=== PATIENT | male | born 1965 | race Caucasian/White ===

== ENCOUNTER 2018-07-24 21:29 | Emergency (ER) | payer OTHER ==
[~2018-07-24] VITALS: Ht 185.4 cm; Wt 145.2 kg
[2018-07-24] MEDS ORDERED: ASPIRIN81 MG PO (21:49)
[2018-07-24] MEDS ORDERED: PENICILLIN V P500 MG PO (22:39)
== END 2018-07-24 22:50 | disposition home or self-care (01) ==
LOC: ED 21:29
DX: K08.89 Other specified disorders of teeth and supporting structures (principal); G89.29 Other chronic pain; F17.200 Nicotine dependence, unspecified, uncomplicated; Z79.82 Long term (current) use of aspirin
CPT/HCPCS: 99282

== ENCOUNTER 2020-01-15 11:15 | Inpatient (IN) | payer OTHER ==
[~2020-01-15] VITALS: Ht 185.4 cm; Wt 176.0 kg
[~2020-01-15 11:15] MED LIST: ASPIRIN81 MG PO; PENICILLIN V P500 MG PO
--- NOTE | 2020-01-15 18:53 | NUR ---
PT TO [facility] VIA GURNEY STANDS TO TRANSFER TO THE BED. PT IS UPBEAT AND COOPERATIVE ASKS APPROPRIATE QUESTIONS. DENIES PAIN OR NAUSEA. ORIENTED TO ROOM AND CALL SYSTEM, PT AGREES TO CALL FOR NEEDS AND TO GET OUT OF BED. EDUCATIONAL MATERIAL ON DIVERTIC PROVIDED WELL LONG DISCUSSION ON THE MATTER
--- NOTE | 2020-01-15 19:30 | NUR ---
pt RESTING IN BED AWAKE. IVF BOLUS INFUSING WNL ORDERED. pt RATES PAIN AT 1-2/10 IN ABDOMEN. "FINE RIGHT NOW". CALL LIGHT IN REACH.
--- NOTE | 2020-01-15 21:40 | NUR ---
PT IV SOUNDING. REQUESTED AND RECEIVED KLEENEX BOX. AWARE THAT PRIMARY RN WILL ADDRESS THE IV THAT CONTINUES TO ALARM, (IV IN LAC).
--- NOTE | 2020-01-15 22:30 | NUR ---
pt AWAKE, ASSESSMENT COMPLETE. pt RATES PAIN 4/10 IN TESTICALS, PRN TORADOL AND SCHEDULED TYLENOL ADMINISTERED. pt REQUESTING "THE GOOD STUFF, MORPHINE". EDUCATION PROVIDED, INSTRUCTED TO CALL IF PAIN NOT CONTROLLED. VSS. URINALS IN REACH. IV ANTIBIOTIC INFUSING WNL ORDERED. NEW PIV LEFT HAND. CALL LIGHT IN REACH.
--- NOTE | 2020-01-15 23:37 | NUR ---
CALL LIGHT ANSWERED. URINAL EMPTIED. IV REINFORCED W TAPE, pt DIAPHORETIC, IV ANTIBIOTIC INFUSING WNL. FAN PLACED IN ROOM, TEMPERATURE ADJUSTED. CPAP ON. CALL LIGHT IN REACH.
--- NOTE | 2020-01-16 03:03 | NUR ---
IN pt ROOM FOR VS, VSS. pt SLEEPING WITH CPAP ON. RT KYLIE VARGAS ALSO IN ROOM. URINAL EMPTIED. ASSESSMENT COMPLETE. IVF INFUSING WNL ORDERED. CALL LIGHT IS IN REACH. DROPLET PRECAUTIONS UTILIZED BY STAFF DUE TO CPAP USE BY pt.
--- NOTE | 2020-01-16 07:41 | NUR ---
RECEIVED REPORT FROM KOBE ANGUIANO. PTS DOOR CLOSED AT THIS TIME A PRECUATION THAT COVID TEST IS NOT BACK YET.
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
--- NOTE | 2020-01-16 09:19 | NUR ---
MED REC COMPLETE
--- NOTE | 2020-01-16 10:32 | NUR ---
PATIENT IN CHAIR WATCHING TV. PATIENT DID SHOWER AND AM, ORAL CARE IND. FRESH WATER GIVEN. CALL LIGHT IN REACH. NO FURTHER NEEDS AT THIS TIME.
--- NOTE | 2020-01-16 12:18 | NUR ---
PT TALKED WITH THE PHYSCIAL THERAPIST THAT HE HAD A BANDAGE ON HIS ELEBOW THAT HAD BEEN ON FOR A WEEK. THIS RN REMOVED THE DRESSING THAT INCLUDED 4X4 GAUZE, ROLL GAUZE AND COBAN. ON THE GAUZE THIS RN NOTED SMALL AMOUNT OF CALVILLO/YELLOW FLUID. THIS RN CLEANED THE SITE ON PTS LEFT ELEBOW AND SKIN INTACT WITH SMALL SKIN TEAR NOTED WITH PINK IN THE BED OF THE TEAR AND PINK EDGES. THIS RN PLACED AN ALLEVEN DRESSING ON THE SITE AT THIS TIME.
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
--- NOTE | 2020-01-16 13:36 | NUR ---
PATIENT IN CHAIR READING. NO VOID AT THIS TIME, PATIENT SAID PROBABLY WITHIN THE NEXT HOUR HE WILL HAVE TO, WILL CHECK BACK IN. CALL LIGHT IN REACH. NO FURTHER NEEDS AT THIS TIME.
--- NOTE | 2020-01-16 13:59 | NUR ---
IN PTS ROOM TO GIVE PT AFTERNOON MEDS. PT STATES THAT HE IS IN PAIN 8. EDUCATED PT THAT TO GET MORE THAN TYLENOL FOR PAIN CONTROL HE NEEDS TO LET HIS NURSING STAFF KNOW. DISCUSSED WITH PT THAT WE WILL START WITH 30 MG OF TORADOL AND THEN IF THAT IS NOT TAKING CARE OF HIS PAIN THEN WE CAN GO TO SOMEHTING STRONGER. IN PTS ROOM ALSO AT THIS TIME. PT WANTING HIS CHEW FROM HIS TRUCK. DISCUSSED WITH PT THAT THIS IS NOT APPROPRIATE FOR HOSPITAL USE. PTS SCDS IN PLACE. DISCUSSED WITH PT THAT GETTING UP TO THE CHAIR MIGHT MAKE HIM MORE COMFORTABLE, PT STATED THAT HE HAS BEEN UP
--- NOTE | 2020-01-16 14:12 | NUR ---
PATIENT IN BED WATCHING TV. FRESH WATER GIVEN. NO VOID, RN NOTIFIED. CALL LIGHT IN REACH. NO FURTHER NEEDS AT THIS TIME.
--- NOTE | 2020-01-16 18:10 | NUR ---
In to see pt as he pushed his call light. Pt requesting to speak with Darling, his primary RN for pain medications. This RN told pt that I would deliver the message to Darling. No immediate needs at this time. Darling notified of patient's request for medication.
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
--- NOTE | 2020-01-16 18:22 | NUR ---
PATIENT RESTING IN BED. VITAL SIGNS AND I&O DONE. PATIENT DID NOT VOID DURING THIS PERIOD. RN NOTIFIED. CALL LIGHT WITHIN REACH. NO OTHER NEEDS AT THIS TIME
--- NOTE | 2020-01-16 18:45 | NUR ---
IN PTS ROOM TO SL PTS IV SO HE CAN TAKE A SHOWER. PT PUT HIS ARM IN FRONT OF THIS RN AND STATED "TAKE OUT THIS IV" PT HAS 2 IV SITES ON HIS LEFT ARM. DISCUSSED WITH PT THAT IF THIS RN REMOVES THIS IV AND THE OTHER GOES BAD THEN HE WILL HAVE TO BE POKED AGAIN. PT UNDERSTANDING. DISCUSSED WITH THAT HE SHOULD ASK MORE RESPECTFULLY. PT STATED "WELL I WOULDN'T WANT TO BE DISRESPECTFUL" THIS RN PROVIDED PT WITH 2 30ML CONDITIONERS FOR HIM TO SHOWER WITH, 1 30ML CUP OF CONDITIONER WAS NOT ENOUGH
--- NOTE | 2020-01-16 19:34 | NUR ---
RECEIVED REPORT FROM SILVIO WERNER. pt SITTING IN CHAIR. REPORTED "I JUST TOOK A SHOWER, I WANT A FEW MINUTES TO DRY OFF BEFORE YOU HOOK ME BACK UP" NO FURTHER REQUESTS. CALL LIGHT WITHIN REACH. WHITEBOARD UPDATED.
--- NOTE | 2020-01-16 20:00 | NUR ---
ROUNDED ON pt. RIRI ANGUIANO IN ROOM. pt SPEAKING IN A LOUD, AGGRESSIVE TONE.
--- NOTE | 2020-01-16 21:30 | NUR ---
SPENT HOUR OR SO WITH PT. HE WAS VERY VOCAL ABOUT HIS CARE THROUGH THE DAY, AT ONE POINT HE WAS AGGRESSIVE, VERBALLY, NOT DIRECTED TOWARD THIS NURSE. AT ONE POINT THIS NURSE OFFERED HIM TO LEAVE AMA, AND HE SAID THAT'S WHAT YOU WANT ME TO DO, NO ONE WANTS TO PROVIDE CARE. SAT AND ALLOWED HIM TO VENT, UNSURE IF HIS CONCERNS ARE TRUTHFUL OR NOT, FELT THAT HE NEEDED TO VENT. HE WAS CONCERNED WITH PATRONIZING ATTITUDES. HE SHOOK MY HAND, AND THANKED ME FOR TALKING WITH HIM. OFFERED AND HE ACCEPTED A BOTTLE OF APPLEJUICE.
--- NOTE | 2020-01-16 21:30 | NUR ---
ROUNDED ON pt. RIRI RN REMAINS IN ROOM. pt SPEAKING IN A MORE CALM MANNER.
--- NOTE | 2020-01-16 23:30 | NUR ---
IN TO DO ASSESSMENT. pt RESTING IN BED. DISCUSSED PAIN MANAGEMENT, RATED PAIN 4/10. REQUESTED 4MG OF MORPHINE ALONG WITH OTHER PAIN MEDICATIONS. MEDICATIONS GIVEN (SEE MAR). pt TALKED DURING THE ENTIRE ASSESSMENT AND MED PASS. AT TIMES COUGHING. IV ABX INFUSING (SEE MAR). RT IN TO SETUP CPAP. CPAP IN PLACE. NO FURTHER REQUESTS AT THIS TIME. CALL LIGHT WITHIN REACH.
--- NOTE | 2020-01-17 00:22 | NUR ---
CPAP ALARMING. pt UP TO TURN ON FAN. NO REQUESTS AT THIS TIME. CALL LIGHT WITHIN REACH. CPAP IN PLACE.
--- NOTE | 2020-01-17 02:15 | NUR ---
IV PUMP BEEPING. REDRESSED IV, ALARM RESOLVED. pt RESTING IN BED WITH CPAP ON. RATED PAIN "OKAY" NO REQUESTS AT THIS TIME. CALL LIGHT WITHIN REACH.
--- NOTE | 2020-01-17 04:00 | NUR ---
ROUNDED ON pt. RESTING WITH CPAP ON. CALL LIGHT WITHIN REACH.
--- NOTE | 2020-01-17 06:32 | NUR ---
ASSESSMENT DONE. pt REPORTED HIS PAIN WAS "FINE" 08/28. MEDICATIONS GIVEN (SEE MAR). VITALS AND I&O RECORDED. WATER PROVIDED. NO FURTHER REQUESTS AT THIS TIME. CALL LIGHT WITHIN REACH.
--- NOTE | 2020-01-17 07:58 | NUR ---
PT AWAKE, UP AND ABOUT IN THE ROOM, EATTING BKFS
--- NOTE | 2020-01-17 08:00 | NUR ---
THIS AM CBG WAS NOT COMPLETED THIS AM DUE TO PT UPSET WITH HOSPITAL ROUTINE.
--- NOTE | 2020-01-17 09:30 | NUR ---
PATIENT UP ON COUCH. SILVIO CASTILLO IN ROOM, LINENS CHANGED. PATIENT PREPPING FOR SHOWER. VITALS AND I&OS DONE AND CHARTED. CALLIGHT IN REACH
--- NOTE | 2020-01-17 10:54 | NUR ---
PT UPSET AGAIN THIS AM, TALKED WITH PT TO FIND OUT WHAT WAS IN HIS TRUCK THAT HE NEEDED. AFTER SOMETIME WE WHERE ABLE TO COME UP WITH A PLAN. HE WANTS TO SHOWER. THAT WAS SET UP FOR HIM, HIS DIET CHANGED SO BKF ORDERED. AND FRESH LINES ON THE BED THIS AM.
--- NOTE | 2020-01-17 12:14 | NUR ---
PT CONTIOUES TO BE IN THE SHOWER AT THIS TIME. PT VERBAL COMMUNICATIONS AND TONE IS BETTER THIS TIME.
--- NOTE | 2020-01-17 12:41 | NUR ---
PT DENIES PAIN AFTER EATTING A LOW FIBER DIET. CURRENTLY SITTING IN CHAIR AND EATING LUNCH.
--- NOTE | 2020-01-17 14:15 | NUR ---
PT SITTING UP IN BED, TV ON. PT SAID HE IS SOMEWHAT BETTER TODAY. PT NEEDED TO TALK-SHARED AT LENGTH HIS FAMILY HISTORY. NEEDS VALIDATION THAT SOMEONE WANTS HIM, AND HAS NO HIDDEN AGENDAS. SHARED GERIATRIC PHYSICIAN WITH PT, AND PRAYED WITH HIM.
--- NOTE | 2020-01-17 14:16 | NUR ---
PATIENT UP IN CHAIR. VITALS AND I&OS CHARTED. MANUAL BP BY ANNA. CALL LIGHT IN REACH
--- NOTE | 2020-01-17 15:16 | NUR ---
PT IS MORE INTERACTIVE WITH STAFF THIS AFTERNOON. TALKING ABOUT PEOPLE WE KNOW IN [facility]. PT IN BED WATCHING TV AT THIS TI9ME.
--- NOTE | 2020-01-17 17:39 | NUR ---
PATIENT UP IN BED. VITALS AND I&OS CHARTED. CALL LIGHT IN REACH. NO OTHER NEEDS AT THIS TIME
--- NOTE | 2020-01-17 17:51 | NUR ---
PT IN BED HAS BEEN VERY COOPERATIVE AT THIS TIME, HE IS VERY OPEN ABOUT HIS FAMILY AND THE DISFUNCTION HE HAS WITH THEM. HE IS TOLERATING PO MEDICATIONS AND WAS GIVEN EDUCATION OF S/S OF WHAT TO LOOK FOR IF HE IS HAVING PROBLEMS WITH IT.
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
--- NOTE | 2020-01-17 19:20 | NUR ---
SHIFT REPORT RECEIVED FROM ANNA ANGUIANO. PT UP IN CHAIR, WATCHING TV. NO NEEDS AT THIS TIME. CALL LIGHT IN REACH.
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
--- NOTE | 2020-01-17 22:14 | NUR ---
PAIN 2/10, SCHEDULED MED PROVIDED. JUICE PROVIDED. NO OTHER NEEDS AT THIS TIME. CALL LIGHT IN REACH.
--- NOTE | 2020-01-18 00:44 | NUR ---
PT RESTING IN BED, EYES CLOSED. RR RATE EVEN, UNLABORED. CALL LIGHT IN REACH.
--- NOTE | 2020-01-18 01:30 | NUR ---
PT RESTING IN BED, EYES CLOSED. RR EVEN, CPAP ON. CALL LIGHT IN REACH.
--- NOTE | 2020-01-18 03:24 | NUR ---
PT CALLS CPAP IS ALARMING. ALARM FIXED. ASSESSMENT COMPLETED. LUNGS CLEAR BUT DIMINISHED. HEART SOUNDS DISTANT. 1+ BLE EDEMA. CHRONIC NUMBNESS IN FEET. NO OTHER NEEDS. CALL LIGHT IN REACH.
--- NOTE | 2020-01-18 05:25 | NUR ---
PT STATES HE HAS 6/10 PAIN IN ABD, HIPS AND TESTICLES. IV WNL, CDI, FLUSHED WELL. SCHEDULED MED PROVIDED. PT STATES THE BED IS VERY PAINFUL AND THE CPAP DOES NOT GIVE ENOUGH AIR. RN NOTIFY RT. VS AND I&O COMPLETED. JUICE PROVIDED. NO OTHER NEEDS AT THIS TIME. CALL LIGHT IN REACH.
--- NOTE | 2020-01-18 05:52 | NUR ---
PT SLEPT OFF AND ON TONIGHT. PT STATES BED IS PAINFUL AND HOT TO SLEEP IN. PAIN MANAGED WITH SCHEDULED AND PRN MEDS. VSS, UOS. LUNGS CLEAR BUT DIMINISHED. BOWEL TONES ACTIVE. PT DECLINES SCDs. PT TOLERATED DIET AND FLUIDS WELL.
--- NOTE | 2020-01-18 07:37 | NUR ---
MORNING ASSESSMENT DONE. PATIENT IS COMFORTABLE, UP TO CHAIR AND AWAITING BREAKFAST. BLOOD GLUCOSE IS 177 THIS MORNING. PATIENT HAS MULTIPLE COMPLAINTS ABOUT HOSPITAL BED/CPAP. SEEMS TO BE IN A GOOD MOOD OTHERWISE.
--- NOTE | 2020-01-18 08:44 | NUR ---
PATIENT UP TO AMBULATE IN HALLWAYS, WEARING MASK.
--- NOTE | 2020-01-18 10:34 | NUR ---
PATIENT SLEEPING ON COUCH WITH REGULAR RESPIRATIONS.
[2020-01-18] MEDS ORDERED: ASPIRIN EC81 MG PO (12:02)
[2020-01-18] MEDS ORDERED: METRONIDAZOLE250 MG PO (12:02)
[2020-01-18] MEDS ORDERED: NICOTINE PATCH1 EAC1 TD (12:02)
[2020-01-18] MEDS ORDERED: CIPROFLOXACIN250 MG PO (12:02)
--- NOTE | 2020-01-18 12:02 | NUR ---
DR. HERNADEZ IN ROOM TO DISCUSS DISCHARGE WITH PATIENT.
[2020-01-18] MEDS ORDERED: TYLENOL EXTRA500 MG PO (12:03)
[2020-01-18] MEDS ORDERED: FAMOTIDINE20 MG PO (12:03)
[2020-01-18] MEDS ORDERED: PERCOCET 7.5-31 EACH PO (12:04)
--- NOTE | 2020-01-18 12:45 | NUR ---
PT UP AMBULATING IN GOULD, HAD BRIEF VISIT, GAVE ENCOURAGEMENT. PT SEEMED TO ENJOY BEING UP AND WALKING.
--- NOTE | 2020-01-18 13:33 | NUR ---
PATIENT UP TO SHOWER, THEN TO D/C HOME.
--- NOTE | 2020-01-18 14:11 | NUR ---
PATIENT AMBULATED TO FRONT DOOR WITH STAFF.
--- NOTE | 2020-01-19 11:23 | HP ---
[facility] [address], [place] [address] Signed ADMISSION DATE: 01/15/2020 REASON FOR ADMISSION: Acute sigmoid diverticulitis with small amount of extraluminal air. HISTORY OF PRESENT ILLNESS: This 54-year-old morbidly obese white man, presented to the emergency room at approximately 11:50 this morning (it is now 5:50 p.m.). His main complaint was right-sided groin and testicular pain, which has been going on for at least 6 months, he tells me. The patient did not have much in the way of complaints of abdominal pain. His evaluation in addition to physical examination showed some tenderness in the right groin crease area. He was found to have an elevated white count of 14,000. Normal electrolytes and liver enzymes. An ultrasound of the scrotum and its contents performed at approximately 1 p.m. showing a small left hydrocele containing debris and normal appearance of the testes and epididymis. A CT scan was subsequently performed at 1:30 p.m., which showed significant diverticulitis with small amount of extraluminal air (small bubbles mixed in with inflammatory change of the sigmoid mesentery). I was called at approximately 3 p.m. with this and recommended direct admit to the hospital to my service. The patient has yet to be transferred to the [facility]. He was to be started on meropenem. I confirmed with the patient that his main complaint over the past several months has been bilateral testicular pain. He has never had a sexually transmitted disease that he admits to. He thinks that his testicles shrunk in size from 6 months ago. He also has noted episodic left-sided abdominal pain, mostly in the upper abdomen. PAST MEDICAL HISTORY: The patient has significant past medical history including morbid obesity and metabolic syndrome essentially. He has undergone coronary stenting of what sounds like left anterior descending artery in [place] approximately 2 years ago and takes aspirin 81 mg a day for this. The patient has a high level of disgruntlement regarding his care at [facility] in [place]. He is on [facility] Plan and feels he has not had access to the care that he desires in that institution, that is the reason he left from his home in [place] to come to [place] at this time. SOCIAL HISTORY: Electronically Signed By: KEN HERNADEZ MD 01/19/20 1123 PATIENT NAME: MYA RANGEL HISTORY AND PHYSICAL DATE OF : 69 REPORT #: [id number] PHYSICIAN: KEN HERNADEZ MD PCP: NO PRIMARY CARE PHYSICIAN REPORT IS CONFIDENTIAL AND NOT TO BE RELEASED WITHOUT AUTHORIZATION [facility] [address] [place] [id number] Signed The patient does smoke on a daily basis and uses marijuana. He does not work. He has parents in the [place] area, with which he sometimes visits. ALLERGIES: He has no known drug allergies. MEDICATIONS: He is taking aspirin 81 mg a day. REVIEW OF SYSTEMS: He denies any nausea or vomiting. Denies any precordial chest pain or shortness of breath. He has had no lower extremity pain. He has had bilateral testicular pain for months, worsening acutely today. He denies abdominal pain other than the groin on the right and left side. PHYSICAL EXAMINATION: VITAL SIGNS: Very markedly obese white man, whose BMI is 42.2, 6 feet 1 inch tall, and 145 kg. Temperature is 99.7, pulse 81, blood pressure 165/71, respirations 18. HEENT: Mucous membranes are reasonably moist. He has some dental problems. NECK: Trachea is midline. CHEST: Shows normal respiratory excursion. He has no tachypnea or obvious difficulty breathing. Pulses regular. ABDOMEN: Massively obese. Palpation shows a tense abdomen, but no focal tenderness and no mass. GENITALIA: Shows uncircumcised male. Both testicles are of normal size and not acutely tender. I see no evidence of hydrocele despite the ultrasound finding. EXTREMITIES: Show no clubbing, cyanosis, or edema. They are obese. There is no other abnormality. LABORATORY STUDIES: Show a white count of 14.0, hematocrit of 49.1, platelets 193,000. Chem profile is essentially normal. Sodium is 130, glucose 182. Liver enzymes are normal. His urinalysis is essentially normal. Serology testing including COVID shows that study to be pending. Abdomen and pelvic CT that has been performed shows intense inflammation and fat around the sigmoid colon with sigmoid bowel wall thickening and diverticula and several small foci of extraluminal gas with inflammation. Inflammatory changes are in the retroperitoneum extending to the duodenum and as well as the base of the bladder. There is no sign of massive free air. I have reviewed the films myself. The bladder is unremarkable as are the testicles essentially. ASSESSMENT: The patient has acute diverticulitis. Whether this is manifesting as additional Electronically Signed By: KEN HERNADEZ MD 01/19/20 1123 PATIENT NAME: MYA RANGEL HISTORY AND PHYSICAL DATE OF : 69 REPORT #: [id number] PHYSICIAN: KEN HERNADEZ MD PCP: NO PRIMARY CARE PHYSICIAN REPORT IS CONFIDENTIAL AND NOT TO BE RELEASED WITHOUT AUTHORIZATION [facility] [address] [place], [place] [address] Signed testicular pain is uncertain, though not impossible. He does not have massive free air to suggest a large disruption of the colon or other intraabdominal hollow viscus. The rather intense inflammatory change of the sigmoid mesentery consistent with acute diverticulitis with probably small perforation... only small air bubbles are seen in the fatty mesentery of the sigmoid. I have recommended admission to the hospital with meropenem antibiotic (broad-spectrum), bowel rest largely though will allow some clear liquids for comfort. DVT prophylaxis and monitoring of his blood glucose, which is elevated. He has several comorbidities including prior history of cardiac disease, morbid obesity and likely type 2, insulin resistant type diabetes. He also has sleep apnea and uses a cpap device at home. I reviewed plan and he understands it fully and agrees with it. MD BRYAN Hightower/KAY /[id number] cc: [facility] Copies: ~ Electronically Signed By: KEN HERNADEZ MD 01/19/20 1123 PATIENT NAME: MYA RANEGL HISTORY AND PHYSICAL DATE OF : 69 REPORT #: [id number] PHYSICIAN: KEN HERNADEZ MD PCP: NO PRIMARY CARE PHYSICIAN REPORT IS CONFIDENTIAL AND NOT TO BE RELEASED WITHOUT AUTHORIZATION
--- NOTE | 2020-01-19 11:23 | DS ---
[facility] [address], [place] [address] Signed ADMISSION DATE: 01/15/2020 DISCHARGE DATE: 01/18/2020 REASON FOR ADMISSION: This 54-year-old, large, morbidly obese white man, presented to the emergency room at approximately 11:50 a.m., evaluated throughout the day by Dr. Newton with complaints of right-sided groin and testicular pain bilaterally, going on for at least 6 months. The patient did not have much in the way of abdominal complaint. He was noted to have an elevated white count and normal liver enzymes and electrolytes. An ultrasound of the scrotum showed no sign of significant abnormality, only a small left hydrocele. A CT scan was subsequently performed at 1:30 p.m., showing significant diverticulitis with small amount of extraluminal air (air bubbles mixed with inflammatory change of the sigmoid mesentery). On the basis of his diverticulitis, he was admitted for further evaluation and care. His past medical history is significant for sleep apnea, for which he has a CPAP device. The patient has had evaluation and treatment for what sounds like a dominant left coronary artery stenosis requiring stenting approximately 2 years ago. He maintains aspirin on a daily basis. Unfortunately he continues to smoke. The patient lives in [place] , but is extremely disgruntled with health care he has had in [facility] and on that basis, he presented to this hospital. As his initial CBC showed a white count of 14.[address] scan confirmed significant diverticulitis, he was placed on meropenem broad spectrum antibiotic. This promptly brought his white count down to 10.6 and did improve his abdominal pain, but he did have persistent bilateral testicular pain. Testicular exam showed no sign of torsion and no sign of other abnormality. I suspect the testicular pain is secondary to his retroperitoneal inflammation related to diverticulitis. He had progressive improvement and was initially started on liquids and advanced to a low fiber diet, which he tolerated well. The patient was noted to have a fair amount of disgruntlement and anger regarding prior caretakers, which culminated in a bit of a disagreement with me, but after discussing things with nurses and so forth, he became more cooperative. It is my suspicion and the suspicion of nurses that he may have an underlying psychologic problem that he does not admit to nor has been particularly documented. Indeed, he has told me that he has been told by others he may have bipolar disease or schizophrenia. He certainly takes no Electronically Signed By: KEN HERNADEZ MD 01/19/20 1123 PATIENT NAME: MAY RANGEL DISCHARGE SUMMARY DATE OF : 69 REPORT #: [id number] PHYSICIAN: KEN HERNADEZ MD PCP: NO PRIMARY CARE PHYSICIAN REPORT IS CONFIDENTIAL AND NOT TO BE RELEASED WITHOUT AUTHORIZATION [facility] [address], [place] [address] Signed medications for that and is extremely hostile and resistant to the possibility. By the day of discharge, he is ambulating well in the hallway, tolerating a solid low-fiber diet, has no fever and white count from the aforementioned down to 8.4. He will maintain a low-fiber diet as an outpatient and will be treated with 10 additional days of Cipro and Flagyl antibiotic. He will see me back in the office in 4 weeks or so. At which point, we will make an assessment for possible colonoscopy to assess for neoplastic disease, however, unlikely that might be. He will continue to use his CPAP device that he used which he has at home and is encouraged to walk on a daily basis. He tells me he will be returning to the household of his parents, though he does live independently generally. DISCHARGE MEDICATIONS: 1. Cipro 750 mg p.o. b.i.d., #20 (10 days). 2. Flagyl 500 mg p.o. t.i.d. with meals, #30. 3. Nicotine patch 21 mg topically daily, #30, refill 2. 4. Aspirin 81 mg p.o. daily. 5. Tylenol Extra Strength 500 mg 2 tablets p.o. q.8 hours as needed for pain, #90, refill 6. 6. Pepcid 20 mg p.o. q.12 hours, #60, refill 2. 7. Percocet 7.5/325 one p.o. q.6 hours as needed for pain, #20. DISCHARGE DIAGNOSES: 1. Sigmoid diverticulitis with elevated white count and bilateral lower abdominal pain secondary to testicular pain. 2. Morbid obesity. 3. Sleep apnea syndrome. 4. History of single artery stenting, probably left anterior descending. 5. Tobacco addiction (chewing). 6. Probable underlying psychopathology, undiagnosed (bipolar disease versus schizophrenia or other). MD BRYAN Hightower/KAY /[id number] Electronically Signed By: KEN HERNADEZ MD 01/19/20 1123 PATIENT NAME: MYA RANGEL DISCHARGE SUMMARY DATE OF : 69 REPORT #: [id number] PHYSICIAN: KEN HERNADEZ MD PCP: NO PRIMARY CARE PHYSICIAN REPORT IS CONFIDENTIAL AND NOT TO BE RELEASED WITHOUT AUTHORIZATION [facility] [address] [place] [id number] Signed cc: Dr. Newton [facility] Copies: ~ Electronically Signed By: KEN HERNADEZ MD 01/19/20 1123 PATIENT NAME: MYA RANGEL DISCHARGE SUMMARY DATE OF : 69 REPORT #: [id number] PHYSICIAN: KEN HERNADEZ MD PCP: NO PRIMARY CARE PHYSICIAN REPORT IS CONFIDENTIAL AND NOT TO BE RELEASED WITHOUT AUTHORIZATION
== END 2020-01-18 14:10 | disposition home or self-care (01) | DRG 392 ==
LOC: ED 11:15 → MS 17:47
PROVIDERS: ADMIT Surgery
DX: K57.32 Diverticulitis of large intestine without perforation or abscess without bleeding (principal); Z68.41 Body mass index [BMI] 40.0-44.9, adult; I25.2 Old myocardial infarction; F17.220 Nicotine dependence, chewing tobacco, uncomplicated; E66.01 Morbid (severe) obesity due to excess calories; E88.81 Metabolic syndrome and other insulin resistance; G47.30 Sleep apnea, unspecified; F31.9 Bipolar disorder, unspecified; F20.9 Schizophrenia, unspecified; Z20.828 Contact with and (suspected) exposure to other viral communicable diseases; F99 Mental disorder, not otherwise specified; Z79.82 Long term (current) use of aspirin; Z95.5 Presence of coronary angioplasty implant and graft
CPT/HCPCS: 36415; 74177; 76870; 80053; 81001; 83605; 85025; 94660; 96375; 99285-25; C9803; J1644; J1885; J2185; J2270; J2405; J7121; Q9967; U0002

== ENCOUNTER 2020-01-20 20:16 | Inpatient (IN) | payer OTHER ==
[~2020-01-20] VITALS: Ht 185.4 cm; Wt 176.0 kg
[~2020-01-20 20:16] MED LIST changes: +ASPIRIN EC81 MG PO; +CIPROFLOXACIN250 MG PO; +FAMOTIDINE20 MG PO; +METRONIDAZOLE250 MG PO; +NICOTINE PATCH1 EAC1 TD; +PERCOCET 7.5-31 EACH PO; +TYLENOL EXTRA500 MG PO
--- OUTSIDE RECORDS SUMMARY | 2020-01-20 20:20 | XMS ---
PreManage Notification: MYA RANGEL [employer] No recent Security Events currently on file CRITERIA MET - [facility] - 2 Visits in 30 Days CARE PROVIDERS There are no care providers on record at this time. Mimi has no Care Guidelines for this patient. [facility] (12 MO.) [facility] NOTE: Visits indicate total known visits. ED/C VISIT TRACKING (12 MO.) [facility] COMPLAINT: - FEVER,VOMITING 01/15/2020 11:16 [facility] TYPE: Emergency COMPLAINT: - GROIN PAIN, POSS HERNIA INPATIENT VISIT TRACKING (12 MO.) 01/15/2020 17:47 [facility] TYPE: Medical Surgical COMPLAINT: - DIVERTICULITIS DIAGNOSES: - Bipolar disorder, unspecified - terminal press operator (current) use of aspirin - Old myocardial infarction - Morbid (severe) obesity due to excess calories - Nicotine dependence, chewing tobacco, uncomplicated - Contact with and (suspected) exposure to other viral communic - Sleep apnea, unspecified - Presence of coronary angioplasty implant and graft - Metabolic syndrome - Mental disorder, not otherwise specified - Diverticulitis of large intestine without perforation or absc - Body mass index (BMI) 40.0-44.9, adult - Schizophrenia, unspecified [email or web address]
--- NOTE | 2020-01-21 00:26 | NUR ---
PT ARRIVED TO ROOM 114 FROM ED, DX DIVERTICULITIS/ABD ABSESS. WALKED TO ROOM FROM STRETCHER, WAS INITIALLY IRRITABLE AFFECT, EASILY REDIRECTED, ANSWERED ADMIT QUESTIONS WELL, ALERT AND ORIENTED. STRONG BODY ODOR, ON ROOM AIR ON ADMIT, NPO X ICE CHIPS HE GOT IN ED, ABX INFUSING RH, NO C/O ADVERSE REACTION TO ABX. SL RAC PATENT. MULTIPLE SCABBED AREAS OVER L ZAMUDIO PRESENT, FLUSHED FACE AND HANDS, BRUISING OVER KNEES AND LOWER ABD, UMBILICAL ABD HERNIA NOTED. C/O ABD PAIN, MEDICATED WITH DIALUDID 0.5MG. CALL LIGHT AT BEDSIDE, CPOX IN PLACE, 90%, STATED HE WEARS A CPAP AT HOME, O2 2L NC PLACED ON, SATS 95-97%, NO RESP DISTRESS, LUNGS CLEAR, DIM AT BASES, PT OVERLY OBESE, TURNS SELF IN BED, CALM, AWARE OF NEED TO GET UA
--- NOTE | 2020-01-21 02:31 | NUR ---
AWAKES EASILY, O2 2LNC, CPOX 93-95%, NO RESP DISTRESS, SNORING. C/O ABD PAIN MEDICATED WITH DILAUDID 0.5MG IV.. TURNS SELF IN BED, AFEBRILE, NPO CALL LIGHT AT BEDSIDE
--- NOTE | 2020-01-21 02:36 | NUR ---
RESTING, NO DISTRESS, ON ROOM AIR, SP AND INDWELLING F/C PATENT. CALL LIGHT AND FLUIDS AT BEDSIDE, BED ALARM ON, TURNS SELF IN BED, TELE IN PLACE
--- NOTE | 2020-01-21 04:24 | NUR ---
pt called stated he was throwing up. had 250cc of green dark emesis. medicated with zofran 4mg IV and Dilaudid 0.5mg IV per 5/10 abd pain. O2 in place, CPOX 93%, NPO, mouth swabs at bedside, encouraged to use, pt fixated on need to take a drink of fluid or ice chips, pt instructed on why he is NPO a this time, semireceptive, anxious, irritable, calmed down, safety reassured. voiding QS, IVf infusing, no c/o adverser eaction to IV abx.
--- NOTE | 2020-01-21 05:30 | NUR ---
Pt resting. O2 2LNC, placed on at prs requests for comofrt as he stated that he wears a CPAP at home, CPOX in place, sats 93-96%, 95% at this time, no resp distress. c/o abd pain and was medicated 3x with Dilaudid with good pain relief. Had 250cc bile colored emesis, medicated with Zofran x1, effective. Has been NPO since 129. He was admitted at 2322 and had a cup of ice chips that were ok'd by ER dr and pt wanted to finish it. No cough.. IVF infusing w/o problems, no c/o adverser eaction to IV abx. call lihgt at bedside. Has been voiding QS large amounts of dark yellow urine. Waiting on BC and was retested for Covid again. afebrile at this time.
--- NOTE | 2020-01-21 06:26 | NUR ---
pt anxious about continuating on NPO status, does own mouth care, O2 2L NC Resp 26, moving around in bed. calmed down. Talking to mother via private phone. Reassures of his safety and that Surgeon will be coming to see him later today. no further c/o pain. no fever
--- NOTE | 2020-01-21 07:10 | NUR ---
MED REC COMPLETE
--- NOTE | 2020-01-21 07:20 | EKG ---
[facility] [address] [facility] [place] [address] Signed Sinus tachycardia Incomplete right bundle branch block Borderline ECG When compared with ECG of 03-JUL-2016 15:38, Incomplete right bundle branch block is now present Confirmed by SAMUEL FLOWERS MD ([id number]) on 01/21/2020 7:19:56 AM Electronically Signed By: SAMUEL FLOWERS MD 01/21/20 0720 PATIENT NAME: CLAIREMYA Electrocardiogram DATE OF : 69 PHYSICIAN: SAMUEL FLOWERS MD REPORT #: [id number] REPORT IS CONFIDENTIAL AND NOT TO BE RELEASED WITHOUT AUTHORIZATION
--- NOTE | 2020-01-21 07:40 | NUR ---
0706: REPORT RECIEVED FROM IMANI ANGUIANO. PT UPSET AND IS STATING HIS PAIN IS OUT OF CONTROL. PT MEDICATED, SEE EMAR. SAT 93% ON 2L, LUNGS DECREASED IN ALL LOBES, PT IS A SMOKER AND HAS OLIVIA AND COPD. PT UPSET AND CUSSING STATING HE HAS BEEN DYING FOR 3-4 DAYS AND NO ONE IS DOING ANYTHING. PT INFORMED OF WHAT HAS BEEN HAPPENING AND HE SPEAKS OVER ME AND CONTINUES CUSSING. AFTER ABOUT 10 MINUTES BE NO LONGER IS CUSSING AND HE LOWERED HIS VOICE. BY THE END OF MY ASSESSMENT HE IS SLEEPING. SAT NOW 91% ON 2l. SEE ASSESSMENT.
--- NOTE | 2020-01-21 10:03 | NUR ---
DR LOPEZ AND THE PT'S MOTHER TO THE ROOM SPEAKING WITH THE PT AT THIS TIME.
--- NOTE | 2020-01-21 10:11 | NUR ---
TEMP 101.[address] LOPEZ AWARE. SCD'S PLACED. PT GIVEN AN IS AND INSTRUCTIONS IN IT'S USE.
--- NOTE | 2020-01-21 11:15 | NUR ---
PT TAKEN TO THE OR AT THIS TIME.
--- NOTE | 2020-01-21 15:31 | NUR ---
01/21/20 1531 Khushi Tyson 1525-PATIENT ARRIVED TO PACU ON 6L MASK NONAROUSABLE ORAL AIRWAY IN PLACE. RR EVEN. DRESSING TO ABDOMEN CDI. DUY DRAIN TO LLQ SEROUSANGUINOUS DRAINAGE. COLOSTOMY IN PLACE. LUU CATHETER DRAINING. SR. IVF INFUSING. NEW IV TO RIGHT ARM PLACED IN OR
--- NOTE | 2020-01-21 16:44 | NUR ---
Pt returned on med surg at 1630, report received from Khushi ANGUIANO. Pt asked if he is having pain and he did not answer me, he appears comfortable. His mother is just leaving to go home and he states to her "fine leave, run". She informed him that she has been here all day and again he states "run". She left at this time. ABD midline dressing CDI, right side William dressing has a moderate amount of drainage on the dressing and is intact. William draining a small amount of seroussang drainage. Colostomy site appears healthy with colostomy bag in place. Sat on 3l is 92%, pt on cpox. Scd's on and running. Call bill within reach.
--- NOTE | 2020-01-21 17:27 | NUR ---
RT called and notified of the cpap order and he states he will come set it up.
--- NOTE | 2020-01-21 18:32 | NUR ---
PT states he needs to sit up at the bedside. It was recommended that he stay in the bed and he states he must sit up and he did so. He set up for about 30 seconds and then layed back in the bed. VSS at this time.
--- NOTE | 2020-01-21 18:53 | NUR ---
PT SLEEPING, SAT ON 3L IS 91%.
--- NOTE | 2020-01-21 19:51 | NUR ---
pt in bed, semi cooperative with assessment, irritable, angry, safety and pain control reassured. mul;tiple questions answered both related to his care and some not. 1-2 for over 25 minutes. semireceptive. On 3L NC, abd BECKA, Midline abd dressing in place, Colostomy empty, DUY w ss drainage. f/c patent. scds in place. 2 sl amd ivf infusing. edema le, declines to elevated legs. very anxious, Medicated wtih Oxycodone 10mg po c/o 04/27 abd pain. aware of fluid restriction, explained several times, semi receptive after many cues. Resistive to post op teaching
--- NOTE | 2020-01-21 20:59 | NUR ---
anxious, took O2 off and is wearing his home CPAP, desatting to 80-83-86%, declines to place o2 back on, rt notified. pt still irritable, semicompliant, would not elevted hob, flat in bed. safety reassured. continue to observa and encourage compliance
--- NOTE | 2020-01-21 23:21 | NUR ---
USING HOME CPAP, CPOX IN PLACE, IVF AND ABX INFUSING. ABD DRESSING WITH OLD DRAINAGE, DUY W SS DRAINAGE,SCDS IN PLACE. FAN IN ROOM. PT MUCH CALMER. MEDICATED WITH TORADOL PER ABD PAIN. AWARE OF FLUIDS RESTRICTION, CONTINUES TO ASK FOR MORE FLUID INTAKE THAT HIS FLUID RESTRICTION ALLOWS FOR. SEMI COMPLIAND AND SEMI RECEPTIVE TO INSTRUTIONS BEING GIVE. STEPFATHER IN ROOM TRYING TO REASONG WITH PT.
--- NOTE | 2020-01-22 01:27 | NUR ---
RESTING, WEARING CPAP, IVF INFUSING, NO C/O ADVERSE REACTION, CALL LIGHT AT BEDSIDE
--- NOTE | 2020-01-22 02:08 | NUR ---
RESTING, CPAP IN PLACE, CPOX READINGS 91%, C/O 5/10 ABD PAIN, MEDICATED WITH IV TYLENOL. ABD DRESSING WITH OLD DRAINAGE, COLOSTOMY WITH SCANT AMOUNT OF SS DRAINAGE, DUY PATENT. F/C PATENT. ON FLUIDS RESTRICTION. CALL LIGTH AT BEDSIDE, IVF INFUSING W/O PROBLEMS, NO C/O ADVERSER EACTION TO ABX. CALMER AND APPRPAPRIATE AT THIS TIME
--- NOTE | 2020-01-22 05:23 | NUR ---
PT HAD LAPARATOMY COLONOSTOMY ABD HERNIS REPAIR W/O MESH. MIDLINE ABD DRESSING WITH OLD DRAINAGE, LAP SITES INTACT. COLOSTOMY WITH SMALL AMOUNT OF SEROUNS/BROWN COLORED DRAINAGE, PT DENIES PASSING GAS, DUY WITH SS DRAINAGE, F/C PATENT, DRAINING QS. SCDS IN PLACE. IVF INFUSING W/O PROBLESM, RECEIVED TYLENOL,TORADOL AND OXYCODONE WITH GOOD PAIN CONTROL. NO C/O ADVERSE REACTION TO ABX. PT HAS NOT TOLERATED 1000CC FLUID RESTRICTION, ON CLEAR LIQUID DIET, WAS ANGRY, IRRITABLE AND ANTAGONIST EARLIER ON SHIFT, CALMER AT THIST FRANTZ. WAS ON 3LNC, AT HS PT USED HIS HOME CPAP, SLEPT WELL, CPOX IN PLACE.
--- NOTE | 2020-01-22 06:26 | NUR ---
VITALS TAKEN BY KYLIE GUPTA, BP REPORTED TO RN.
--- NOTE | 2020-01-22 06:30 | NUR ---
PATIENT EXPRESSES ANGER AND FRUSTRATION ABOUT CARE AND CONDITION. RN NOTIFIED.
--- NOTE | 2020-01-22 06:46 | NUR ---
c/o abd pain, medicated with toradol 30mg iv 04/27 pain. upset, irritable, screaming, belligerent, easily redirected by this rn. safety and concerns reassured partially. semireceptive to information being given
--- NOTE | 2020-01-22 06:51 | OR ---
[facility] [address] [place], [place] [address] Signed DATE OF OPERATION: 01/21/2020 SURGEON: Ilana Lopez MD PREOPERATIVE DIAGNOSES: 1. Perforated sigmoid diverticulitis with abscess. 2. Umbilical hernia. POSTOPERATIVE DIAGNOSES: 1. Perforated sigmoid diverticulitis with abscess. 2. Umbilical hernia. PROCEDURES PERFORMED: 1. Left lower quadrant colostomy (prolonged and difficult at 3 hours). 2. Placement of right pelvic drain. ESTIMATED BLOOD LOSS: Minimal. FINDINGS: Soren marquez had distal sigmoid perforated diverticulitis with an abscess on the right side of his pelvis, extending down the pelvis to the bottom and all the way up the retroperitoneum to the transverse duodenum. He also has significant adipose tissue, which was quite inflamed and indurated. We required 2 experienced senior nurses to scrub in and the case took 3 hours, which is at least 60 minutes longer than usual. As a result, this case was prolonged and difficult. INDICATIONS: Tiburcio is a 54-year-old gentleman at 6 foot 1 inches, 388 pounds. He came 6 days ago with perforated distal sigmoid diverticulitis. He had inflammatory changes in the retroperitoneum from the pelvis all the way up to the transverse duodenum. He had been in the hospital on IV antibiotics. He was doing better and discharged to home by his surgeon. He tells me he went to the pharmacy and picked up the Cipro and Flagyl, and took it as prescribed. Within a couple of days, he was feeling worse and the pain was increasing in intensity. He therefore, came back to the emergency room for evaluation. In the emergency room, he clearly was tender in the right lower quadrant with a white count of 10,000. Sodium was low at 129. Urine specific gravity was up at 1.032. Lactic acid was 1.7. Albumin is good at 3.9. His blood cultures are pending. I was called at night to admit him as a general surgeon on-call. He was given an initial dose of meropenem when he came to the emergency room. We then added cefepime and Flagyl. Electronically Signed By: ILANA LOPEZ MD 01/22/20 0651 PATIENT NAME: TIBURCIO RANGEL OPERATIVE REPORT DATE OF : 69 REPORT #: [id number] PHYSICIAN: ILANA LOPEZ MD PCP: NO PRIMARY CARE PHYSICIAN REPORT IS CONFIDENTIAL AND NOT TO BE RELEASED WITHOUT AUTHORIZATION [facility] [address], [place] [address] Signed This morning, I met with Tiburcio and his mother. He did not appear systemically ill or toxic. He is a very large man with a very large abdomen. He clearly had a reducible 3 cm umbilical hernia. He was also tender to deep palpation in the right lower quadrant. His chest x-ray was unremarkable. His CT scan from last night and from 6 days ago were both reviewed. He has now developed an abscess on the right side in the distal sigmoid colon, headed down into the pelvis. I had reviewed all this with Tiburcio and his mother in detail. We talked about diverticular disease. We talked about various surgical options. I explained to Tiburcio that at this point, he would most likely require a temporary colostomy and had it reversed in the months ahead. That gave his body time to heal and be a much safer surgery, particularly with respect to anastomosis. It could also preserve him the most length of his rectum. In addition, it will allow him to undergo a colonoscopy to check the rectal stump as well as the colon, to rule out any other pathologic issues specifically cancer. I explained to Tiburcio as the expected intraop and postop course. We did review the risks including, but not limited to bleeding, infection, scarring, change in contour of the skin, damage to bowel, damage to the ureters, anastomotic leak, issues with the colostomy, issues with the rectal stump, as well as incisional hernias and other unforeseen comorbidities. He had expressed understanding and wished to proceed. DESCRIPTION OF PROCEDURE: Tiburcio was taken into our operating room and placed in a supine position under general endotracheal tube anesthesia. He was already on preoperative antibiotics along with subcutaneous heparin. SCDs were utilized. We had inserted a Arteaga catheter with return of clear yellow urine without difficulty. He was then prepped and draped in usual sterile fashion. We utilized a standard periumbilical midline incision and carried down to the abdomen bluntly and with the cautery. We were able to place the Bookwalter retractor and bring the small bowel in the cecum up and all the way. He clearly had probably 8 cm of his distal sigmoid colon quite inflamed and indurated, that it perforated off the right side and developed an abscess. It had been opened, and that had been irrigated and suctioned out. It extended all the way down the side of the pelvis to the floor. His mesentery is quite wide from his adipose tissue and it was also quite indurated from the inflammatory changes. I then performed a more traditional Sherry resection. We decided to completely divert the stool stream and create a colostomy. Consequently, we went just above the inflamed area and divided the bowel with the help of the TA-60 stapler. The rectal stump was oversewn with multiple interrupted [id number] 3-0 silk sutures. The mesentery to the sigmoid colon was divided at the base with right-angled clamps and 0 Vicryl ties. He also had a few adhesions along the left pelvic sidewall and they were easily taken down with the help of the cautery. This gave us sufficient length on the sigmoid colon to create his colostomy. After that, we irrigated and suctioned out his pelvis once again. We used a #10 flat Dileep drain. We brought that into the right pelvis and out through the right lateral sidewall with the help of a tonsil clamp. It was sewn in place, the skin with Electronically Signed By: ILANA LOPEZ MD 01/22/20 0651 PATIENT NAME: TIBURCIO RANGEL OPERATIVE REPORT DATE OF : 69 REPORT #: [id number] PHYSICIAN: ILANA LOPEZ MD PCP: NO PRIMARY CARE PHYSICIAN REPORT IS CONFIDENTIAL AND NOT TO BE RELEASED WITHOUT AUTHORIZATION [facility] [address] [place] [address] Signed 2-0 nylon suture. We then allowed the small bowel to return to its position. We removed the Bookwalter retractor and we went just lateral and slightly inferior to the umbilicus where the rectus muscle was and we removed the circular piece of skin with the help of the 20 blade knife. I removed some of the underlying adipose tissue. Then, we opened the fascia both anteriorly and posteriorly with help of the cautery, mostly vertically, but also short distance laterally as well in a cruciate type of incision. That allowed us to bring his sigmoid colon up through the abdominal wall without any tension whatsoever. We then brought the midline fascia back together with interrupted [id number]-[id number] #1 PDS sutures. We closed his umbilical fascial defect as well. We injected local anesthetic into the abdominal wall. We then irrigated the wound and suctioned out until clear. We brought the dermis together with interrupted 3-0 subcuticular Monocryl sutures. The skin was reapproximated with gregorio. After this, we matured his colostomy with interrupted 3-0 Vicryl sutures. He did have a significant amount of adipose tissue around the colon, but the sigmoid colon itself was of expected luminal diameter. We had to close the lateral aspect of our skin incision for the colostomy, just about 2 cm to bring the skin down to size to match the sigmoid colon itself. We did this with interrupted 3-0 subcuticular Monocryl sutures and we closed the skin edges with a running fast absorbing 5-0 plain gut suture. After this, we cut an appliance to fit his colostomy and it was applied to the abdominal wall by myself and the nursing staff. Dry gauze and tape were then applied to his incision along with the drain site. His Arteaga catheter was left in place. Tiburcio was awakened from his anesthesia, extubated in the OR, and taken to recovery room in stable condition. Ilana Lopez MD ALB/MODL /[id number] cc: Ilana Lopez MD Copies: ILANA LOPEZ MD ~ Electronically Signed By: ILANA LOPEZ MD 01/22/20 0651 PATIENT NAME: TIBURCIO RANGEL OPERATIVE REPORT DATE OF : 69 REPORT #: [id number] PHYSICIAN: ILANA LOPEZ MD PCP: NO PRIMARY CARE PHYSICIAN REPORT IS CONFIDENTIAL AND NOT TO BE RELEASED WITHOUT AUTHORIZATION
--- NOTE | 2020-01-22 06:51 | CONS ---
[facility] [address], [place] [address] Signed DATE OF CONSULTATION: 01/21/2020 CHIEF COMPLAINT: Right lower quadrant abdominal pain. HISTORY OF PRESENT ILLNESS: Mya is a 54-year-old, obese gentleman, at 385 pounds, 6 feet 1 inch tall. He had been admitted 5 to 6 days ago with a sigmoid diverticulitis. He was treated conservatively, seemed to be getting better and was discharged home on Cipro and Flagyl. He returns now with increasing pain in the right lower quadrant. On interval CT scan, he now is developing an abscess in the right lower quadrant with some air bubbles. He was admitted last night, started on meropenem, cefepime, and Flagyl. Overall, he has been stable, although somewhat uncooperative. I had been asked to admit him as a General Surgeon on-call. PAST MEDICAL HISTORY: Coronary artery disease, [place], COPD. PAST SURGICAL HISTORY: Cardiac stent at [facility], at [place], [place]. SOCIAL HISTORY: He likes to smoke at least a pack of cigarettes a day. He has a drink once in a while. Does not do any IV drugs. He said he lives in [place], and is unemployed and does drive. He said his mother lives up in [place], and her name is for Star Chiang at [phone]. He mentioned he uses the [facility] in [place]. He has no primary care provider. FAMILY HISTORY: He says none. REVIEW OF SYSTEMS: He had 10 systems reviewed. No other major issues. ALLERGIES: None. MEDICATIONS: Cipro, Flagyl, nicotine patch, aspirin, Tylenol, Pepcid, and Percocet. PHYSICAL EXAMINATION: VITAL SIGNS: Blood pressure 158/73, heart rate 92, respiratory rate 26, temperature is 98.3 up to 103.1. He is 93% on room air. He is 6 feet 1 inch tall at 175 kg (385 Electronically Signed By: ILANA PRUETT MD 01/22/20 0651 PATIENT NAME: MYA RANGEL CONSULTATION DATE OF : 69 REPORT #: [id number] PHYSICIAN: ILANA PRUETT MD PCP: NO PRIMARY CARE PHYSICIAN REPORT IS CONFIDENTIAL AND NOT TO BE RELEASED WITHOUT AUTHORIZATION [facility] [address], [place] [address] Signed pounds). GENERAL: Mya is a 54-year-old gentleman, who appears slightly older than his stated age. He is a bit disheveled. He is a bit uncooperative and I suspect that is his baseline. LUNGS: Generally clear to auscultation bilaterally. HEART: Regular rate and rhythm without murmurs. ABDOMEN: Obese, but soft. He has a moderate sized, but reducible umbilical hernia. He has tender in the right lower quadrant. He has some ecchymoses in his lower abdomen from his heparin shots on his previous hospital admission. LABORATORY DATA: His white blood count was 10, it is now 7.1; neutrophils were 80, and platelets 234. His sodium was a little low at 129. His BUN 6, creatinine 0.87, glucose 178. Urine specific gravity was little high at 1.032. His lactic acid was 1.7. His liver function tests are negative. His albumin is 3.9. Blood cultures are pending. His chest x-ray was unremarkable. His CT scan of abdomen and pelvis shows the sigmoid diverticulitis with a 3.6 x 3.4 x 6.9 cm abscess containing some air bubbles CT scan on 01/15/2020. ASSESSMENT AND PLAN: Mya is a 54-year-old obese gentleman, who presents with worsening sigmoid diverticulitis, now developing an abscess. He has been admitted, given IV fluids, antibiotics, and pain control. I explained to Mya that we can certainly do his surgery, but he has a high risk of having a colostomy. He was upset by that, but I explained to Mya that normally we leave the colostomy is between 6 and 12 months and then we reversed him. Of course, and take a 2nd surgery. He is at much higher risk of anastomotic leak if the bowel was inflamed. If he has uninvolved rectum and uninvolved proximal colon, we could put him back together. Otherwise, he would have to have a temporary colostomy. He understands I cannot just over-sew the sac that I have to actually remove a section of his colon. He understands this is a periumbilical midline incision, it is quite a bit of surgery he would be with his probably in 5 to 10 days recovering. He would need at least 2 months to get 90% recover from the surgery itself. He knows there is risk including, but not limited to bleeding, infection, scarring, change in contour of the skin, damage to bowel, anastomotic leak, incisional hernias, and other unforeseen comorbidities such as blood clots, pneumonia, heart attacks and so forth. He has expressed understanding and would like to proceed with surgery. Ilana Pruett MD ALB/MODL Electronically Signed By: ILANA PRUETT MD 01/22/20 0651 PATIENT NAME: MYA RANGEL CONSULTATION DATE OF : 69 REPORT #: [id number] PHYSICIAN: ILANA PRUETT MD PCP: NO PRIMARY CARE PHYSICIAN REPORT IS CONFIDENTIAL AND NOT TO BE RELEASED WITHOUT AUTHORIZATION [place] [id number], [place] [address] Signed /[id number] cc: Ilana Pruett MD Copies: ILANA PRUETT MD ~ Electronically Signed By: ILANA PRUETT MD 01/22/20 0651 PATIENT NAME: MYA RANGEL CONSULTATION DATE OF : 69 REPORT #: [id number] PHYSICIAN: ILANA PRUETT MD PCP: NO PRIMARY CARE PHYSICIAN REPORT IS CONFIDENTIAL AND NOT TO BE RELEASED WITHOUT AUTHORIZATION
--- NOTE | 2020-01-22 07:27 | NUR ---
CALLED [facility] FOR A CONSULT, THEY WILL HAVE THEIR DAY SHIFT STAFF THAT COMES ON AT 8 COME FROM [facility]. ADVISED IF HE GETS HOSTILE THAT WE SHOULD NOTIFY THE POLICE RIGHT AWAY. BENJAMÍN DIXON IS IN THE ROOM TALKING TO HIM NOW PER PATIENTS REQUEST.
--- NOTE | 2020-01-22 07:30 | NUR ---
REPORT RECEIVED FROM RN IMANI, PT AGITATED AND REQUESTING ADMINISTRATION. BENJAMÍN Hernández CAME TO FLOOR TO TALK TO PT.
--- NOTE | 2020-01-22 08:00 | NUR ---
BENJAMÍN Noguera IN ROOM, SECURITY AT DOOR.
--- NOTE | 2020-01-22 09:49 | NUR ---
SPENT A SIGNIFICANT AMOUNT OF TIME IN PATIENTS ROOM USING THERAPUTIC COMMUNICATION. CHANGED THE BEDDING WITH ASSISTANCE FROM KYLIE FATIMA. DID BEDBATH AND UNBRIADED HIS HAIR. PT RANTED REGARDING PREVIOUS CARE AT OTHER HOSPITALS BUT WAS APPRECIATIVE OF HIS CARE HERE. WOULD LIKE JUS REMOVED, WILL CALL . WOULD ALSO LIKE A DIFFERENT BED. WILL WORK ON THAT ALSO. OSTOMY HAVING SIGNIFICANT GAS OUTPUT WHILE IN ROOM.
--- NOTE | 2020-01-22 10:50 | NUR ---
PATIENT IN BED RESTING, RN IN ROOM. B\P HIGH, RN NOTIFIED. FRESH WATER GIVEN. CALL LIGHT IN REACH. NO FURTHER NEEDS AT THIS TIME.
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
--- NOTE | 2020-01-22 13:44 | NUR ---
pt sitting up in chair. states he does not feel any better but it is better than the bed.
--- NOTE | 2020-01-22 14:00 | NUR ---
REMOVED PT LUU PER DR ORDER AND PT REQUEST. PT TOLERATED WELL. STEPDAD STILL IN ROOM.
--- NOTE | 2020-01-22 14:59 | NUR ---
PATIENT REFUSED VITALS TO BE TAKEN, RN NOTIFIED. CALL LIGHT IN REACH. NO FURTHER NEEDS AT THIS TIME.
--- NOTE | 2020-01-22 15:22 | NUR ---
WALKED PT IN HALLWAY WITH THIS RN FOR 2 LAPS. TOLERATED WELL. STATES HIS ABDOMEN FEELS DISTENDED. ADVISED MOVEMENT IS THE BEST REMEDY FOR THAT. ADMINISTERED TORADOL IV FOR 10\10 PAIN.
--- NOTE | 2020-01-22 18:08 | NUR ---
PT ATE MOST OF LIQUID DINNER. TOLERATED WELL. SHOWED HOW TO EMPTY OSTOMY AND DUY DRAIN. WALKED IN GOULD AGAIN. STATES THAT HE FEELS MUCH BETTER NOW THAT HE IS ON A PAIN REGIMNE. PT INTO NEW BARIATRIC BED AND STATES IT IS MUCH BETTER. CPAP ON AND DECLINED ROUNDING IN ROOM FOR THE NIGHT HE WOULD LIKE TO REST.
--- NOTE | 2020-01-22 18:22 | NUR ---
PATIENT IN BED RESTING. B\P , RN NOTIFIED. PATIENT REFUSED TO HAVE IT TAKEN AGAIN. CALL LIGHT IN REACH. NO FURTHER NEEDS AT THIS TIME.
--- NOTE | 2020-01-22 19:30 | NUR ---
REPORT RECEIVED FROM SILVIO FORTUNE. ASSUMED CARE OF pt. pt RESTING IN BED, REQUESTED REPORT OUTSIDE OF ROOM.
--- NOTE | 2020-01-22 20:32 | NUR ---
PT CALLED REQUESTED WATER. GIVEN. VOIDED WELL, STATED THAT IT WAS "DIFFICULT" TO GET STREAM STARTED. AWARE THAT VOIDING WILL INCREASE AND WILL BECOME EASIER. PLEASANT AND COOPERATIVE. SITTING UP IN CHAIR.
--- NOTE | 2020-01-22 21:00 | NUR ---
CALL LIGHT ANSWERED. ICE WATER PROVIDED. pt C/O 02/25 PAIN IN ABDOMEN, PRN MEDICATION ADMINISTERED. IV ANTIBIOTIC INFUSING WNL. VSS. DRESSINGS CDI. DUY DRAIN STRIPPED, MINIMAL SS OUTPUT NOTED. COLOSOTMY EMPTIED 50 CC SOFT BROWN OUTPUT NOTED. CALL LIGHT IN REACH. NO REQUESTS AT THIS TIME, pt COOPERATIVE WITH CARES.
--- NOTE | 2020-01-22 23:26 | NUR ---
pt RESTING IN BED. IV ANTIBIOTICS INFUSING ORDERED. URINAL EMPTIED. HOME CPAP ON. NO REQUESTS AT THIS TIME.
--- NOTE | 2020-01-23 01:45 | NUR ---
CALL LIGHT ANSWERED. pt C/O 10/10 ABDOMINAL PAIN UPON AWAKENING. PRN PAIN MEDICATIONS ADMINISTERED. ASSESSMENT COMPLETE, ABD FIRM, DISTENDED, BOWEL TONES ACTIVE X 4. SMALL AMT BROWN DRAINAGE IN COLOSTOMY BAG. MINIMAL OUTPUT NOTED IN DUY DRAIN SS. DRESSINGS CDI. URINAL EMPITED, CALL LIGHT IN REACH.
--- NOTE | 2020-01-23 05:10 | NUR ---
CALL LIGHT ANSWERED. pt STATES WOKE UP IN PAIN, DOES NOT RATE PAIN, STATES "IT'S HIGH ENOUGH I CAN'T SLEEP". pt STATES WAS ABLE TO SLEEP FOR A FEW HOURS. PRN PAIN MEDICATION ADMINISTERED. IVF ANTIBIOTICS INFUSING WNL ORDERED. DUY DRAIN EMPTIED FOR 10 MLS SS FLUID. COLOSTOMY WITH SCANT BROWN DRAINAGE IN BAG. DRESSINGS CDI. CALL LIGHT IN REACH. HOME CPAP ON.
--- NOTE | 2020-01-23 06:27 | NUR ---
pt RESTED OFF AND ON THIS SHIFT, AWAKENING DUE TO PAIN. HOME CPAP AT REST. 50 CC BROWN DRAINAGE FROM COLOSTOMY, 10 CC FROM DUY DRAIN SS FLUID. BOWEL TONES ACTIVE. DRESSINGS CDI. pt TOLERATING FULL LIQUID DIET. IVF AND IV ANTIBIOTICS INFUSING ORDERED WNL. pt COOPERATIVE WITH CARES. PRN PAIN MEDICATIONS ADMINISTERED THROUGHOUT SHIFT.
--- NOTE | 2020-01-23 06:41 | NUR ---
MD IN pt ROOM. pt AWAKENS, CPAP OFF. COLOSTOMY NOTED TO HAVE OPENDED, GOWN CHANGED, pt CLEANED UP. pt REQUESTING MD BACK IN ROOM, MD NOTIFIED VERBALLY.
--- NOTE | 2020-01-23 07:36 | NUR ---
In for nurse report. Pt a&ox4, respirations even and non labored. Pt verbalized he wanted to speak to Dr. Pruett regarding his surgery. This RN instructed pt that I will notify the devulcanizer charger about him wanting to speak with his provider. No needs at this time. Personal supplies and call light within reach.
--- NOTE | 2020-01-23 09:00 | NUR ---
Pt reporting 10/10 abdominal pain; administered Oxycodone 10mg po and Morphine 5mg IVP. Pt states medications "help a bit". Education provided to patient regarding plan of care and pain medication. No needs at this time.
--- NOTE | 2020-01-23 09:31 | NUR ---
DHAVAL from Dr. Pruett for nicotine patch 21mg, albuteral q4prn, musinex 600mg po bid and to start a cornet. Pt reporting having a difficult time "getting the junk out of my lungs". Iss in use and patient ambulating frequently this shift.
--- NOTE | 2020-01-23 09:44 | NUR ---
PATIENT RESTING IN BED. VITAL SIGNS AND I&O DONE. CALL LIGHT WITHIN REACH. NO OTHER NEEDS AT THIS TIME
--- NOTE | 2020-01-23 11:21 | NUR ---
PATIENT AMBULATING IN THE HALLWAY.
--- NOTE | 2020-01-23 11:35 | NUR ---
Haldol 5mg IVP administered for agitation/anxiety per pt request.
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
--- NOTE | 2020-01-23 12:14 | NUR ---
Pt sitting up in chair resting, eyes closed, respirations even and non labored. Pt has no distress noted. Personal supplies and call light within reach.
--- NOTE | 2020-01-23 12:35 | NUR ---
Toradol 30mg IVP and Oxycodone 10mg po administered for reports of 7/10 abdominal pain.
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
--- NOTE | 2020-01-23 15:37 | NUR ---
1300: recommendation made to clinical pharmacy to request order for LAMA and SHIVANI from attending for better control of shortness of breath associated with COPD. recommendation made to case managment to refer patient to a community health worker.
--- NOTE | 2020-01-23 16:39 | NUR ---
Spoke with PT at RN suggestion. PT spoke at length regarding family and social concerns. Stated beleif that family and a large sitka of people acquainted with his family are out "make [him] go away." Stated belief in some nefarious secret about his that could "come back to them." PT expressed frustration that no one would advocate for him, and recognized that there was nothing I could do to help him either, but remain civil and appropriate throughout interaction.
--- NOTE | 2020-01-23 17:16 | NUR ---
Oxycodone 10mg po administered for reports of 8/10 abdominal pain.
--- NOTE | 2020-01-23 17:27 | NUR ---
PATIENT SITTING UP IN CHAIR. RN IN ROOM. VITAL SIGNS AND I&O DONE. CALL LIGHT WITHIN REACH. NO OTHER NEEDS AT THIS TIME
--- NOTE | 2020-01-23 18:25 | NUR ---
Pt a&ox4, walking frequently this shift. Oxycodone. toradol, tylenol and Morphine in use for abdominal pain. DUY intact RLQ. LLQ colostomy. ABD incisions CDI. +BT's. Home CPAP with sleep. Calling appropriately.
--- NOTE | 2020-01-23 19:41 | NUR ---
SHIFT REPORT RECEIVED FROM NURSE ARNETT. PT IN CHAIR EATING DINNER. COLOSTOMY AND DUY DRAIN INTACT. PT HAS NO REQUESTS AT THIS TIME.
--- NOTE | 2020-01-23 21:00 | NUR ---
ASSESSMENT COMPLETE. PT STATES HE IS "JUST READY FOR BED". PT HAD JUST BEEN WALKING IN THE GOULD PRIOR TO ASSESSMENT. PT TO TOILET TO EMPTY COLOSOTOMY. DARK BROWN SOFT STOOL EXPRESSED. PT RETURNED TO BED AND REQUESTED MORPHINE "TO SLEEP". PT THEN STATES HE HAS PAIN 10/10 BUT CANNOT LOCALIZE. PRN TORADOL PROVIDED IN ADDITION TO REGULAR SCHEDULED MEDS. DUY DRAIN IS INTACT AND HAS SMALL AMOUNT OF SEROSANGUINOUS FLUID. SURGICAL DRESSINGS UNCHANGED SINCE DAY SHIFT. PRN HALDOL PROVIDED TO HELP PT RELAX AND SLEEP. NO MORPHINE AT THIS TIME GIVEN. CALL LIGHT WITHIN REACH. PT APPLIED CPAP.
--- NOTE | 2020-01-23 22:50 | NUR ---
CALL LIGHT ANSWERED. PUMP WAS ALARMING. PT WENT PROMPTLY BACK TO SLEEP. NO FURTHER NEEDS AT THIS TIME. CALL LIGHT AND BEDSIDE TABLE PLACED WITHIN REACH.
--- NOTE | 2020-01-24 01:20 | NUR ---
ROUNDS COMPLETE. NEW BAG OF FLUIDS HUNG. PT STATES HE HAD URINATED IN URINAL. PT FELL PROMPTLY BACK TO SLEEP. CALL LIGHT AND BEDSIDE STAND WITHIN REACH.
--- NOTE | 2020-01-24 05:36 | NUR ---
ASSESSMENT COMPLETE. PT REQUESTS PRN PAIN MEDS FOR PAIN 9/10 IN ABDOMEN. PAIN MEDS ADMINISTERED. DUY DRAIN HAD 25CC SEROSANGUINOUS DISCHARGE. COLOSTOMY HAS DARK BROWN STOOL AND GAS SOUNDS ARE HEARD DURING ASSESSMENT. BOWEL TONES ARE ACTIVE. VSS ALTHOUGH PT REMAINS HYPERTENSIVE. URINE OUTPUT IS GOOD. CALL LIGHT PLACED WITHIN REACH. NO FURTHER NEEDS AT THIS TIME.
--- NOTE | 2020-01-24 05:38 | NUR ---
PT HAD A GOOD NIGHT. PT REMAINED CALM ALL NIGHT, CALLED APPROPRIATELY AND SEEMED TO SLEEP WELL. PT MAINTAINED HIS CPAP ON HIS OWN. WOUND DRESSINGS REMAIN UNCHANGED THIS SHIFT. DUY DRAIN HAD 25CC SEROSANGUINOUS DISCHARGE. COLOSTOMY IS INTACT AND PRODUCING DARK BROWN SOFT STOOL. PT REQUESTED PAIN MEDS TWO TIMES THIS SHIFT FOR 9-10/10 PAIN IN ABDOMEN WHICH WAS PROVIDED. PT REQUESTED MORPHINE ALTHOUGH PAIN WAS MAINTAINED WITH TORADOL AND OXYCODONE. PT WALKED HALLWAY EARLY IN SHIFT INDEPENDENTLY AND THEN SLEPT MOST OF NIGHT.
--- NOTE | 2020-01-24 07:30 | NUR ---
BEDSIDE REPORT FROM TIANA ANGUIANO. PT ASLEEP UP IN CALL LIGHT IN REACH RESP RATE REG.
--- NOTE | 2020-01-24 09:39 | NUR ---
PT SEEMS VERY TENSE AND ANXIOUS - DEMANDING, C/O ABD PAIN. MEDICATED WITH PO PAIN MEDS AND HALDOL TO HELP HIM SETTLE DOWN. PT UP IN COMPLAINING ABOUT PAIN. RN CLEANED UP ROOM AFTER MEDICATION AND STAYED WITH PT TO HELP TRY AND ASSURE HIM. DENIES OTHER NEEDS. CALL LIGHT IN REACH IN . VITAL SIGNS TAKEN, DUY DUMPED FOR 30 ML, COLOSTOMY CHECKED VERY DARK STOOL AND STOMA, BAG WITH GAS POSITVE BS. MIDLINE INS WITH ELISE OPEN TO AIR AND INTACK WNL.
--- NOTE | 2020-01-24 09:44 | NUR ---
Called and spoke with Dr. Pruett to confirm plan for dc. He plans on dc tomorrow or the next day. Called [facility] and they are currently accepting pts. Referral sent with H&P and hand written chart notes, face sheet. Called [facility], as I had spoken with [facility], they do not accept [facility]. [facility] they contract with [facility] for ostomy supplies. Will get an RX for all ostomy supplies from Dr. Pruett and fax to [facility] and to from [facility] if they accept pt.
--- NOTE | 2020-01-24 10:30 | NUR ---
PATIENT SITTING UP IN CHAIR. PATIENT WOULD LIKE TO TAKE A SHOWER TODAY. SETS UP BATHROOM FOR SHOWER. CALL LIGHT WITHIN REACH. NO OTHER NEEDS AT THIS TIME
--- NOTE | 2020-01-24 10:33 | NUR ---
pt up in drinking water, denies needs.
--- NOTE | 2020-01-24 11:53 | NUR ---
PT UP IN , SLEEPS ON AND OFF, DENIES NEEDS.
--- NOTE | 2020-01-24 12:02 | NUR ---
PUNCH OPERATOR NOTIFIED THIS RN OF PT REQUEST FOR PAIN MED, THIS RN WAS JUST IN AND PT WAS ASLEEP. PT WAS WOKE BY THIS RN AND ASKED TO RATE PAIN 10/10 ABD. IV TORADOL AND 20 MG OXY GIVEN PO. PT ON COUCH IN ROOM SITTING. WATER REFILLED.
--- NOTE | 2020-01-24 12:50 | NUR ---
Call from [facility]. They will accept this pt on dc. Would like a F2F, informed this will not be completed until dc and pt's new PCP will be Dr. Dodson. They will need to contact him for HH orders.
--- NOTE | 2020-01-24 14:00 | NUR ---
Received call from Dr. Pruett. He is attempting to contact pt's mother. Phone number given. Recieved a call from pt's mother, Star. She states she spoke with Dr. Pruett and pt will go home with her on dc. She requests pt not dc until Wednesday as they have to many appts. on their agenda. Informed it is up to the when pt is dcd. She asks if I can put in a good word with and informed, I really can't. Pt will be discharged when goals met. She states Dr. Pruett told her the same. Informed i contacted [facility] and [facility] they both will assist pt. She asks I call if pt is discharged tomorrow. Mom notified we have sent pts to [facility] on dc per taxi in the past, this will cost approx. $100. She states someone will be able to pick him up.
--- NOTE | 2020-01-24 15:10 | NUR ---
Ester Dey [facility] will see him after dc and [facility] will supplies his ostomy supplies when orders are written. Pt states, "I really don't care."
--- NOTE | 2020-01-24 15:25 | NUR ---
Fatuma and efren wound care nurses in to do ostomy teaching. pt given po pain meds prior.
--- NOTE | 2020-01-24 16:25 | NUR ---
DR. LOPEZ ORDERED A CONSULT FOR OSTOMY EDUCATION AND CARE. THE PT IS AGREEABLE TO BEING SEEN THIS AFTERNOON AND BEING CARED FOR AND EDUCATED. HE STATES THAT HE WILL HAVE HELP AT HOME WHEN DISCHARGED TO TAKE CARE OF THE STOMA. THE OLD BAG AND WAFER ARE TAKEN OFF. THERE IS SOME BLEEDING AROUND THE EDGES OF THE STOMA, AND THE STOMA IS A NICE PURPLE COLOR. THE STOMA IS ALSO FLAT, WHICH IS ATTRIBUTED TO THE PT BEING OBESE AND THE SKIN SURROUNDING THE STOMA BEING TAUGHT COMPARED TO THE OPPOSITE OF THE ABDOMEN. THE ARE IS CLEANSED WITH WARM WATER. CAVILLON ADVANCED SKIN PREP IS APPLIED TO PERIWOUND SKIN AND ALLOWED TO DRY. A TEMPLATE IS MADE TO HELP THE PT AND HOME HEALTH IN THE FUTURE WHEN CHANGING HIS COLOSTOMY BAG. ADAPT PASTE IS APPLIED TO THE EDGE OF THE WAFER AFTER A HOLE IS CUT TO FIT AROUND THE STOMA, WHICH IS THEN APPLIED TO THE STOMA/PERIWOUND SKIN. THE BAG IS SECURE IN PLACE AND CHECKED FOR A SECURE CONNECTION. MED/VENDING MACHINE OPERATOR'S ASK THIS RN TO CALL DR. LOPEZ AND RELAY WHAT I THINK/SAW WITH THE STOMA. DR. LOPEZ IS CALLED AND GIVEN A SMALL REPORT, HE IS APPRECIATIVE OF THE CALL.
--- NOTE | 2020-01-24 17:10 | NUR ---
pt up in room - ordered him a hot turkey sand for dinner - pain improved 8/10 and po meds given.
--- NOTE | 2020-01-24 17:11 | NUR ---
pt up in room, and mittal. wound care nurse in to teach stoma and ostomy care. stoma pics in chart. black dark and painful - a.f. nurse notified dr. buitrago and fire extinguisher charger was in to observe. supplies list to dc planning. pt coughs and deep breathes - gregorio and rell wnl.
--- NOTE | 2020-01-24 18:01 | NUR ---
PATIENT SITTING UP IN CHAIR. PATIENT REFUSED TO TAKE HIS VITAL SIGNS. RN NOTIFIED. I&O DONE. PATIENT REFUSED TO TAKE A SHOWER TODAY, EVEN WHEN HE WAS ENCOURAGE THREE TIMES TO DO IT. CALL LIGHT WITHIN REACH. NO OTHER NEEDS AT THIS TIME
--- NOTE | 2020-01-24 20:00 | NUR ---
RN IMANI REQUESTED THAT THIS CHECKER IN CLUSTER CARE WITH RN FOR THIS PATIENT THROUGHOUT SHIFT AND NOT TO ENTER ROOM WITHOUT RN.
--- NOTE | 2020-01-24 20:47 | NUR ---
Pt in chair, walked to bed and got into bed himself w/o help. ivf infusing r hand, generalized 2+ edema. 3+ at feet, non pitting, declines scds. On room air at this time, home CPAP at HS, lungs with fainta crackles at bases, and dim. midline abd incision with gregorio in places, edges well approaximated, above umbilical area pink colored, below umbilical area slightly red, dry. large abd bruise present on rigth low abd and smaller one in right upper abd . DUY patent draining sanguineous drainage, Ostomy bag with soft brown colored bm. edges dark. very hypoactive bowel tones auscultated. C/o 10/10 abd pain and cramping, medicated with Toradol 30mg IV. no c/o n/v. tolerating diet and fluids, fresh water and juice given on requests. Coop with assesment, pleasant and coop, followed instructions well. HOB elevated and declines to elevated legs.
--- NOTE | 2020-01-24 22:35 | NUR ---
RESTING, USING CPAP, IVF INFUSING, DUY AND OSTOMY PATENT, MIDLINE ABD INCISION W ELISE W/O CHANGES.
--- NOTE | 2020-01-24 22:53 | NUR ---
c/o 04/27 abd pain, medicated with 10mg po oxycodone
--- NOTE | 2020-01-25 02:03 | NUR ---
USING CPAP, TURNS SELF IN BED, ABD INCISION, OSTOMY DUY W/O CHANGES. IVF INFUSING, CALM, NO RESP DISTRESS. CALL LIGHT AND FLUIDS AT BEDSIDE, VOIDED LARGE AMOUNTS OF DARK ORANGE-YELLOW COLORED URINE. CALL LIGHT AT HABDS REACH
--- NOTE | 2020-01-25 03:34 | NUR ---
PATIENT CALLED FOR ASSISTANCE, REQUESTED RN FOR MEDICATIONS. FRESH ICEWATER AT BEDSIDE. NO FURTHER NEEDS AT THIS TIME.
--- NOTE | 2020-01-25 03:48 | NUR ---
pt up in chair, awake, on room air, c/o abd cramping/pain. medicated with Oxycodone 10mg po. midline abd incisin w/ot changes, ostomy and rell patent, ivf infusing w/o problems. tolerating large amounts of liquids and voiding qs
--- NOTE | 2020-01-25 05:02 | NUR ---
PT HAS SLEPT OFF AND ON THIS SHIFT, HAS BEEN MEDICATED PER C/O ABD PAIN WITH TORADOLX1 AND OXYCODONE 10MG PO X2 WITH GOOD TO FAIR PAIN RELIEF. MIDLINE ABD INCISION WITH ELISE IN PLACE, DRY, EDGES WELL APPROXIMATED, REDNESS AT BASE OF INCISION, BRUISED AREAS LOWER ABD FROM HEPARIN SHOTS. R LOW ABD DUY IN PLACE WITH SANGUINEOUS DRAINAGE. L OSTOMY DARK COLORED, FLAT STOMA, DRAINING SMALL AMOUNT OF DARK BROWN SOFT LIQUID BM. ABD DISTENDED TENDER. VOIDING LARGE AMOUNTS OF DARK ORANGE URINE. TOLERATING DIET AND LIQUIDS WELL, UP IN THE CHAIR SEVERAL TIMES THIS SHIFT, GENERALIZED EDEMA, DECLINES TO ELEVATED LEGS. PT WAS CALMER TODAY AND MORE RECEPTIVE TO INFORMATION BEING GIVEN, CONTINUES TO DECLINE TO DO OWN STOMA CARE. CONTINUE TO REINFORCE SELF CARE. PT EXCITED TO BE DC'D HOME TODAY
--- NOTE | 2020-01-25 07:10 | NUR ---
bedside report from daysi, pt up in ch, eyes closed, resp rate reg. call light in reach.
--- NOTE | 2020-01-25 09:00 | NUR ---
PT ASKED ABOUT TAKING SHOWER - BUT DIDN'T WANT TO WASH HAIR, FACE OR SUTTON.. JUST WANTS TO RINSE OFF. SET UP FOR SHOWER - SL IV. ENC AND EDUCATED PT ABOUT WOUND CARE OF ELISE AND OSTOMY BAG. PT RECEPTIVE. PT CONCERNED ABOUT MUCUS LIKE SM BM - WITH THE OSTOMY. EDUCATED ABOUT MUCUS AND SECRETIONS THAT THE GI TRACT MAKE - NOTIFY DR WITH ANY CHANGES, BLEEDING OR ODORS.
--- NOTE | 2020-01-25 11:00 | NUR ---
Dr Pruett in to see Tiburcio. Discussed surgery and plan of care. Plan to dc tomorrow. . would like pt to stay and see Dr Dodson tomorrow for medication review and any further orders. Pt initially stating he wants to go home today, but does agree to stay to see Dr. Dodson. Rx for ostomy supplies signed by Dr. Pruett and faxed with chart notes to [facility]. Notes from today, RX for osotomy supplies and F2F signed by Dr. Pruett faxed to [facility]. NOte updating pt will dc tomorrow.
--- NOTE | 2020-01-25 11:12 | NUR ---
pt up in and iv abx fusing. Dr. buitrago and dc service planner in with pt and rn. dr. buitrago printed education reviewed by pt and dr. pt very receptive and thankful. pt positive about loosing weight and seeing dr. mancilla - pt reports feeling better about his depression. he reports feeling suicidal in the last few days but now better. he denies a plan and reports to me he is safe and not a risk. agrees to talk to pcp about depression. pt reports drug abuse to self medicate and weed use at home. pt almost seems manic and very talkative at this point. very grandiose in story telling to this rn - however he is very positive and in good spirits. encouraged his talk of goals and recovery.
--- NOTE | 2020-01-25 11:59 | NUR ---
amb in mittal - doing well. denies needs
--- NOTE | 2020-01-25 13:46 | NUR ---
Attempted to contact pt's mom Star rios 3 and was able to reach at [phone]. Updated pt will stay tonight and dc tomorrow. Requested she call before she comes to pick him up, to confirm dc tomorrow.
--- NOTE | 2020-01-25 15:11 | NUR ---
pt up in and in a good mood. pain increasing so po prn meds given. started po flagyl and educated pt. on meds.
--- NOTE | 2020-01-25 15:21 | NUR ---
THIS RN ASKED SPLITTING MACHINE FEEDER ALEX TO VISIT WITH PT ABOUT DC DIET AND FIBER LOW AND HIGH AND CURRENT ILLNESS, SURGERY AND DIVERTICULITS. PRINTED EDUCATION GIVEN TO PT ON THE ABOVE AND PT RECEPTIVE TO EXTRA HELP.
--- NOTE | 2020-01-25 15:57 | NUR ---
PT WALKING IN GOULD - THANKFUL TO NOT HAVE TO PACK IV POLE. IV SL. PO ABX.
--- NOTE | 2020-01-25 16:01 | NUR ---
PATIENT TOOK A SHOWER THIS MORNING. BEEN WALKING IN AROUND MED SURG. MOST OF THE DAY. LINENS CHANGED. UP IN CHAIR WITH ALL HIS MEALS.
--- NOTE | 2020-01-25 16:18 | NUR ---
DEVIKA RN, MENTIONED THAT THIS PATIENT COULD USE SOME ADVICE ON EATING TO PREVENT DIVERTICULITIS, NEW COLOSTOMY, AND WEIGHT LOSS. SHE GAVE HIM SOME INFORMATION ON LOW-FIBER AND HIGH-FIBER DIET ALREADY. PATIENT STATES THIS IS A WAKE UP CALL FOR HIM. HE SEEMS MOTIVATED TO EAT HEALTHIER BUT HAD SOME GOOD QUESTIONS THAT HE TALKED TO ME ABOUT. HE EXPLAINED HIS ROUTINE: HE GETS UP AND GOES TO THE [employer] [facility] AND BUYS A LARGE FOUNTAIN COKE FOR THE CAFFEINE SINCE HE DOES NOT LIKE COFFEE. HE DRINKS 3-4 OF THOSE THROUGHOUT THE DAY. BETWEEN 12-3 PM HE'LL EAT FAST FOOD. AROUND 7-8 PM HE'LL EAT AGAIN, COULD BE FAST FOOD OR SOMETHING FRIED AT HOME. HE ASKED ABOUT MEAT/PROTEIN FOODS WITH HIS CONDITION. I SAID TO CHOOSE LEAN MEAT WITHOUT A LOT OF VISIBLE FAT, OR CHICKEN WITHOUT THE SKIN, AND TO AVOID FRYING THEM. HEALTHY COOKING METHODS ARE BAKING, BROILING, GRILLING OR ROASTING. THIS ADVICE RESONATED WITH HIM BECAUSE HE EATS MOSTLY FRIED FOODS. HE WENT ON TO TALK ABOUT WANTING TO LOSE WEIGHT THE RIGHT WAY, AVOIDING FAD DIETS OR PYRAMID SALES FROM PEOPLE HE KNOWS WHO SELL SOMTEHING LIKE A MEDIFAST. I ALSO REMINDED HIM THAT LOSING 100 LBS WILL TAKE TIME. IF HE LOSES WEIGHT TOO FAST, HIS BODY IS LIKELY TO BE IS STARVATION MODE AND HIS BODY WILL FIGHT IT AND WEIGHT GAIN WILL HAPPEN. HE UNDERSTOOD THIS. I TOLD HIM THAT IF HE WANTS MORE DIETARY/NUTRITIONAL HELP, HAVE DR. SANDERS (WHO WILL BE HIS PCP) SEND A REFERRAL TO ME. HE APPRECIATED MY TIME. NO OTHER HANDOUTS GIVEN AT THIS TIME. WILL REMAIN AVAILABLE WHILE PATIENT IS HERE.
--- NOTE | 2020-01-25 17:56 | NUR ---
PT CONTINUES TO DO WELL AND AMB IN GOULD - DR LOPEZ CALLED NEW ORDER TO SL PT IS THANKFUL.
--- NOTE | 2020-01-25 20:21 | NUR ---
walking hallways, tolerated well, back to room, up in chair, watching tv, declines to have legs elevated, on room air, no sob noted. lungs clear bilat, midline abd incision w gregorio well approx, dry, large bruise r low abd, r abd rell site present with sanguineous drainage. ostomy on right side with semiliquid dark brown colored draiange. pt held own bad and stripped it out. cont to reinforce
--- NOTE | 2020-01-25 23:06 | NUR ---
AWAKES EASILY, CPAP IN PLACE, NICOTINE PATCH IN R ARM, NO FURTHER C/O PAIN OR ANXIETY, APPROPRIATE, PLEASANT. TURNS SELF IN BED. CALL LIGHT AT BEDSIDE, FRESH FLUIDS GIVEN ON REQUETS
--- NOTE | 2020-01-26 02:26 | NUR ---
EYES CLOSED, NOR KASIA DISTRESS, SLEEPING ON L SIDE, F/C PATENT. PT ON ROOM AIR, CALL LIGHT AND FLUIDS AT BEDSIDE, NO N/V
--- NOTE | 2020-01-26 02:28 | NUR ---
PT WEARING CPAP, LAYING L SIDE, DUY AND STOMA PATENT, ABD INCISION WELL APPROX. VOIDING QS ORANGE-YELLOW URINE, QS, TOLERATING FLUIDS WELL, FLUIDS AND CALL LIGHT AT BEDSIDE
--- NOTE | 2020-01-26 04:35 | NUR ---
PT UP TO BR, EMPPTIED OWN STOMA BAG APPROPRIATELY, PRAISED FOR HIS EFFORSTS. DUY PATENT, VOIDID, BACK TO CHAIR, C/O 11/25 ABD PAIN, MEDICATED WITH OXYCODONE 10MG PO. WATCHING TVC, FRESH WATER AND JUICE GIVEN ON REQUESTS. CALL LIGHT AT BEDSIDE
--- NOTE | 2020-01-26 04:37 | NUR ---
PT AFFECT AND COOPERATION MUCH BETTER, APPROPRIATE BEHAVIOR, CALMER, WALKED SEVERAL TIMES AROUND UP AND DOWN NURSING STATION, BACK TO ROOM, HAS SLEPT VERY WELL THIS SHIFT, WEARS CPAP, TOLERATED WELL, NO C/O SOB. TOLERATING DIET AND FLUIDS, NO EMESIS. ON ROOM AIR, MIDLINE INCISION WITH ELISE IN PLACE, EDGES WELL APPROX, DRY, LOWER END OF INCISION SLIGHTLY MORE RED THAN ABOVE UMBILICAL AREA INCISION. BIG BRUISE LOWER ABD FROM HEPARIN SQ. R LOW ABD ZAID WITH SMALL AMOUNT OF SS DRAINAGE. TOTAL 15CC TIS WHOLE SHIFT. L OSTOMY SITE, PATENT, STILL DARK COLORED AND FLAT STOMA BULGE, PT HAS DONE OWN CARE AND EMPTIED OWN STOMA 2X, MUCH IMPROVED SELF CARE. PRAISED FOR HIS EFFORTS. MUCH MORE COOPERATIVE. PT IS TO BE DC HOME TODAY. SL PATENT, GENERALIZED EDEMA LE PT IS VERY OBESE AND DOES NOT ELEVATE LE WHEN UP IN CHAIR. CALL LIGHT AT BEDSIDE. HAS BEEN MEDICATED X2 PER ABD PAIN WITH VERY GOOD PAIN RELIEF. WATCHING TV AND OUT WALKING HALLWAYS THIS AM TV AT THIS TIME.
--- NOTE | 2020-01-26 06:33 | NUR ---
dr buitrago in room. assessing pt.
--- NOTE | 2020-01-26 06:45 | NUR ---
pt walking hallways independent, aware of new orders to do self care of rell management at home and stoma care. and that every other abd gregorio is to be removed, pt has concers about his bp being high. calm, appropriate, normal tone aof voice, affect and body language.
--- NOTE | 2020-01-26 09:47 | NUR ---
Orders in chart for dc from Dr. Pruett. He agrees to write orders for Home Health. DC notes, orders, and referral for HH faxed to [facility] to [facility] [phone]. Received call from Rachael and PATTI VALDOVINOS, they have sent rx & notes to [place] [facility] [place] as they are unable to deliver supplies to [place]. [facility] [phone]. Per [address] Dodson will see pt at his scheduled appt the end of the month to establish care. Spoke with Tiburcio, he states his mom will be here later this afternoon to pick him up. Updated Dr. Dodson will see him at his scheculed appt to establish care.
[2020-01-26] MEDS ORDERED: OXYCODONE HCL10 MG PO ×2 (09:50→09:54)
--- NOTE | 2020-01-26 09:51 | NUR ---
EVERY OTHER STAPLE REMOVE FROM INCISION, EXCEPT DIRECTLY AROUND UMBILICUS DUE TO PULLING, INCISION IS WELL APPROXIMATED NO DRAINAGE, DUY PATENT WITH RED SERROUS FLUID, PATIENT ABLE TO SEMONSTRATE TO ME CORRECT AND SAFE EMPTING OF COLOSTOMY AND CARE OF DUY, STATES HE FEELS HE CAN DO IT. RESTING COMFORTABLY ON BED. CALL LIGHT IN EASY REACH.
[2020-01-26] MEDS ORDERED: SEROQUEL25 MG PO ×2 (09:52→09:54)
[2020-01-26] MEDS ORDERED: FLAGYL500 MG PO ×2 (09:52→09:55)
[2020-01-26] MEDS ORDERED: AUGMENTIN 875-1 EACH PO ×2 (09:52→09:54)
[2020-01-26] MEDS ORDERED: TYLENOL325 MG PO (09:59)
[2020-01-26] MEDS ORDERED: ADVIL200 MG PO (10:00)
--- NOTE | 2020-01-26 10:25 | NUR ---
PATIENT UP IN ROOM. VITALS AND I&OS CHARTED. CALL LIGHT IN REACH.
--- NOTE | 2020-01-26 12:00 | NUR ---
REVIEWED DISCHARGE INSTRUCTINS WITH PATIENT, VERBALIZES UNDERSTANDING OF FOLLOWUP APPOINTMENT, S/SX TO REPORT, DRAIN CARE AND LOG, DEMONSTRATED CARE AND EMPTING OF COLOSTOMY AND DRAIN. VERBALIZES UNDERSTANDING OF MEDICATION INSTRUCTIONS, NEED FOR AND SIDE EFFECTS. DENIES ANY QUESTIONS OR CONCERNS.
--- NOTE | 2020-01-30 07:24 | DS ---
[facility] [address], [place] [address] Signed ADMISSION DATE: 01/20/2020 DISCHARGE DATE: 01/26/2020 FINAL DIAGNOSES: 1. Perforated distal sigmoid diverticulitis with abscess. 2. Hypertension. 3. Obesity. 4. Paranoid and delusional thoughts. 5. Chronic obstructive pulmonary disease. 6. Coronary artery disease. 7. History of smoking. PROCEDURE: left lower quadrant colostomy. HISTORY OF PRESENT ILLNESS: Tiburcio is a 54-year-old obese gentleman, who lives in a trailer on his parent's property. Unfortunately, he has a lot of paranoid and delusional thoughts. He seems to have a lot of anger management issues. Apparently, he has had some altercations while at [facility] in [place], [place]. When he developed his right lower quadrant abdominal pain, he came to [facility] here in [place], [place]. He had been seen several days prior to this admission for his diverticulitis. He had some air and inflammation running in the retroperitoneum around the level of the pelvis all the way up to the transverse duodenum. He improved on antibiotics and was discharged to home by Dr. Munoz. Unfortunately, he came back a couple days later with increasing pain in the right lower quadrant. He was developing an abscess in that area. I have been asked to admit him as a general surgeon on-call. HOSPITAL COURSE: Tiburcio was taken to the operating room that same day and underwent creation of left lower quadrant and colostomy. He had tremendous inflammatory changes in the distal sigmoid colon and proximal rectum associated with that abscess. Consequently, we were not able to resect any of that tissue. That will be resected as his 2nd surgery. The abscess had been opened. All the pus evacuated and a drain was placed. He was kept on cefepime and Flagyl throughout his hospital stay. He very rapidly defervesced within a couple of days. He was markedly improved from a physical standpoint almost immediately from the surgery. He has continued to have murky thin serosanguineous fluid out the drain. We did add Seroquel 25 mg p.o. b.i.d. and that improved his behavior tremendously. He did have some inhalers initially, but the last few days has not required them. We did use a nicotine patch. His systolic blood pressures have been running a little high in the 150s to 170s. We did not institute any blood pressure medication at this time. We did Electronically Signed By: ILANA LOPEZ MD 01/30/20 0724 PATIENT NAME: TIBURCIO RANGEL DISCHARGE SUMMARY DATE OF : 69 REPORT #: [id number] PHYSICIAN: ILANA LOPEZ MD PCP: TRUDY SANDERS MD REPORT IS CONFIDENTIAL AND NOT TO BE RELEASED WITHOUT AUTHORIZATION [address] [address] Signed have our Internal Medicine Service see him yesterday with plans to follow up in the Internal Medicine Service Clinic after discharge. At this point, Tiburcio has been doing much better. He is now helping with his colostomy, which is a little dark, but it has been functioning well. He has also been participating with his drain and he knows he is going home with the drain and will be looking at that a week from now. He has been ambulating in the hallways and tolerating his diet. We spent an enormous amount of time with Tiburcio both myself, Case Management and the nursing staff. We did have [facility] come and see him. He had declined to see [facility]. He had seen them in the past for probably a year and a half for 2 years and is not interested in seeing [facility]. However, he is interested in his own health. He is very interested in beginning with his primary care provider after his discharge. In the end, he would benefit from mental health provider as well. On exam this morning, his abdomen is quite obese, but it is very soft, nontender. He has some ecchymoses from his Lovenox shots, but otherwise doing quite well. DISCHARGE PLANS AND MEDICATIONS: Tiburcio is going to be discharged to home with a prescription for the oxycodone immediate release 10 mg one tablet p.o. q.6 hours p.r.n. for severe postoperative pain. We will give 20 tablets, but no refills. He can use Tylenol, ibuprofen, or Aleve p.r.n. for [id number] postoperative pain. He can purchase that [id number]. We are going to continue the Augmentin 875 mg one tablet p.o. b.i.d. for a full two weeks. He will continue the Flagyl 500 mg one p.o. t.i.d. again for a full two weeks. We have written for the Seroquel 25 mg one p.o. b.i.d. with 60 tablets and two refills. He will address that in more detail with his PCP in followup. We did not provide him with any inhalers currently as he declined. I have also reviewed with Tiburcio the colostomy and we had our colostomy nurse and our case management to help in that regard. The [facility] Team will be out to visit him and help him as a new colostomy patient. We are going to leave his drain in place and he will continue to record the drain output each day. We are going to remove 1/2 the gregorio. We will allow him to shower and bathe as usual and he can walk up and down stairs and perform his activities of daily living. However, should not do any heavy pushing, pulling, or lifting over about 20 pounds. He has expressed understanding and agrees to above plan. Ilana Lopez MD ALB/MODL /[id number] Electronically Signed By: ILANA LOPEZ MD 01/30/20 0724 PATIENT NAME: TIBURCIO RANGEL DISCHARGE SUMMARY DATE OF : 69 REPORT #: [id number] PHYSICIAN: ILANA LOPEZ MD PCP: TRUDY SANDERS MD REPORT IS CONFIDENTIAL AND NOT TO BE RELEASED WITHOUT AUTHORIZATION [facility] [address] [place] [id number] Signed cc: MD Trudy Carrillo MD Copies: ILANA LOPEZ MD, LOHITH VEERAPPA MD ~ Electronically Signed By: ILANA LOPEZ MD 01/30/20 0724 PATIENT NAME: TIBURCIO RANGEL DISCHARGE SUMMARY DATE OF : 69 REPORT #: [id number] PHYSICIAN: ILANA LOPEZ MD PCP: TRUDY SANDERS MD REPORT IS CONFIDENTIAL AND NOT TO BE RELEASED WITHOUT AUTHORIZATION
--- NOTE | 2020-01-30 09:30 | NUR ---
PATIENT LEFT TWO MESSAGES ON CASE MANAGEMENT PHONE ASKING JAMES TO CALL HIM REGARDING NEEDING A PCP. PATIENT WAS SET UP WITH F/U APPT WITH DR SANDERS AT DISCHARGE FOR 02/15/[address] [facility]. THIS WAS ON HIS DISCHARGE INSTRUCTIONS. TRIED TO RETURN CALL TO PATIENT ON PHONE NUMBER HE LEFT [phone]. HIS PHONE MAILBOX IS FULL SO COULD NOT LEAVE MESSAGE.
== END 2020-01-26 12:25 | disposition home health service (06) | DRG 330 ==
LOC: ED 20:16 → MS 22:32
PROVIDERS: ADMIT Colon & Rectal Surgery
PROC: 3E0T3BZ Introduction of Anesthetic Agent into Peripheral Nerves and Plexi, Percutaneous Approach (ICD-10-PCS; 2020-01-21)
PROC: 3E0T33Z Introduction of Anti-inflammatory into Peripheral Nerves and Plexi, Percutaneous Approach (ICD-10-PCS; 2020-01-21)
PROC: 0D1N0Z4 Bypass Sigmoid Colon to Cutaneous, Open Approach (ICD-10-PCS; principal; 2020-01-21 11:00)
DX: K57.20 Diverticulitis of large intestine with perforation and abscess without bleeding (principal); Z68.43 Body mass index [BMI] 50.0-59.9, adult; G89.18 Other acute postprocedural pain; I25.10 Atherosclerotic heart disease of native coronary artery without angina pectoris; Z20.828 Contact with and (suspected) exposure to other viral communicable diseases; I25.2 Old myocardial infarction; J44.9 Chronic obstructive pulmonary disease, unspecified; F17.210 Nicotine dependence, cigarettes, uncomplicated; F22 Delusional disorders; E66.9 Obesity, unspecified; K42.9 Umbilical hernia without obstruction or gangrene; Z79.899 Other long term (current) drug therapy; Z79.82 Long term (current) use of aspirin; Z79.891 Long term (current) use of opiate analgesic
CPT/HCPCS: 00790; 36415; 64488; 71045; 74177; 76942; 80048; 80053; 81001; 83036; 83605; 83735; 84100; 84134; 85025; 87040; 93005; 93010; 94667; 94760; 94762; 96366; 96375; 99285-25; 99406; C9113; C9803; J0131; J0330; J0692; J1100; J1170; J1630; J1650; J1885; J2185; J2250; J2270; J2405; J2704; J2795; J3475; J7030; J7121; Q9967; U0002